=== PATIENT | male | born 1950 | race Caucasian/White ===

== ENCOUNTER → 2016-05-13 | Outpatient (CLI) | payer MEDICARE, BC | LOC: MW.CHNEURO 08:00 | PROVIDERS: ATTEND Psychiatry & Neurology Neuromuscular Medicine | DX: G20 Parkinson's disease (principal); R42 Dizziness and giddiness; G47.52 REM sleep behavior disorder | CPT/HCPCS: 99214 ==

== ENCOUNTER 2019-10-23 04:35 | Emergency (ER) | payer MEDICARE, BC ==
--- NOTE | 2019-10-23 04:50 | EDM.PDOC ---
<Jimi uTrner - Last Filed: 10/23/19 06:45> ED HPI GENERAL MEDICAL PROBLEM - General Chief Complaint: General Stated Complaint: EMS ARRIVAL Time Seen by Provider: 10/23/19 04:41 Source of Information: Reports: Patient, EMS, Family History Limitations: Reports: Other (Parkinson's, dementia) - History of Present Illness INITIAL COMMENTS - FREE TEXT/NARRATIVE: 69-year-old male history of Parkinson presents with unwitnessed fall in the bathroom just prior to arrival. He does not fully recall the fall. He complained to EMS of pain to the left elbow and ribs. He is unsure whether he hit his head. found him laying on his back in the shower. He lives with his and he normally walks without any assistance. He denies hip pain. ROS: A 10-point review of systems, other than pertinent positives and negatives as stated per HPI, is otherwise negative Past medical history: No additional pertinent history Past Surgical history: No additional pertinent history Social history: No additional pertinent history Family history: No additional pertinent history PHYSICAL EXAM General: AOx2, GCS = 15, No distress HEENT: dry mucous membrane, NC/AT Neck: supple, no meningismus, no Kernig or Brudzinski, collar in place. Cardiac: S1S2 RRR Chest wall: no flail chest, no tenderness to palpation to the ribs. Respiratory: CTAB, no crackles or rales, no wheezing Abdomen: Soft, nontender, no rebound or guarding, nondistended, no pulsatile mass. Back: nontender to C/T/L-spine Musculoskeletal: NVI distally, left elbow chronic deformity, mildly tender with ROM. no tenderness with pelvis rock or bilateral hips. Neuro: resting tremor, rigidity, akinesia Bilateral Lower Back Pain Score (Numeric/FACES): 8 - Related Data Allergies Allergy/AdvReac Type Severity Reaction Status Date / Time No Known Allergies Allergy Verified 01/01/18 08:23 Home Meds: Home Meds Tamsulosin [Flomax] 0.4 mg PO DAILY 09/13/13 [History] Carbidopa/Levodopa [Sinemet Cr 25-100 mg] 2.5 tab PO QID 05/22/14 [History] [place] Oil 1 dose PO ASDIRECTED PRN 01/01/18 [History] Cholecalciferol (Vitamin D3) [Vitamin D3] 1,000 units PO DAILY 01/01/18 [History] L.acidoph,Paracasei, B.lactis [Probiotic] 1 tab PO DAILY 01/01/18 [History] Mirtazapine 5 mg PO BEDTIME 01/01/18 [History] Multivitamin [Multivitamins] 1 tab PO DAILY 01/01/18 [History] Elizabeth-3S/DHA/Epa/Fish Oil [Elizabeth-3 Fish Oil 1,000 mg Sfgl] 1,000 mg PO DAILY 01/01/18 [History] Saw [place] 160 mg PO DAILY 01/01/18 [History] Turmeric Root Extract [Turmeric] 500 mg PO DAILY 01/01/18 [History] Vitamin B Complex 1 tab PO DAILY 01/01/18 [History] Past Medical History HEENT History: Reports: None Gastrointestinal History: Reports: Chronic Constipation, Other (See Below) Other Gastrointestinal History: recently has increased heartburn but does not take anything for this Genitourinary History: Reports: BPH, Prostate Disorder Musculoskeletal History: Reports: Fracture Other Musculoskeletal History: fx elbow in highschool Neurological History: Reports: Parkinson's Psychiatric History: Reports: Anxiety, Depression Dermatologic History: Reports: Eczema - Past Surgical History Head Surgeries/Procedures: Reports: None HEENT Surgical History: Reports: Myringotomy w Tube(s), Naso-Sinus Surgery, Tonsillectomy GI Surgical History: Reports: Colonoscopy Male Surgical History: Reports: Vasectomy Social & Family History - Caffeine Use Caffeine Use: Reports: None ED ROS GENERAL - Review of Systems Review Of Systems: Comprehensive ROS is negative, except as noted in HPI. ED EXAM, GENERAL - Physical Exam Exam: See Below (see dictation) Departure - Departure Disposition: Home, Self-Care 01 Condition: Good Clinical Impression: Fall - Discharge Information *PRESCRIPTION DRUG MONITORING PROGRAM REVIEWED*: Not Applicable *COPY OF PRESCRIPTION DRUG MONITORING REPORT IN PATIENT [place]LY[place]: Not Applicable Instructions: Fall Prevention in the Home, Adult, [id number], Parkinson's Disease, [id number] Referrals: Song Tinoco MD [Primary Care Provider] - 3 Days Forms: ED Department Discharge Additional Instructions: The need for follow-up, as well as the timing and circumstances, are variable depending upon the specifics of your emergency department visit. If you don't have a primary care physician on staff, we will provide you with a referral. We always advise you to contact your personal physician following an emergency department visit to inform them of the circumstance of the visit and for follow-up with them and/or the need for any referrals to a consulting specialist. The emergency department will also refer you to a specialist when appropriate. This referral assures that you have the opportunity for follow-up care with a specialist. All of these measure are taken in an effort to provide you with optimal care, which includes your follow-up. Under all circumstances we always encourage you to contact your private physician who remains a resource for coordinating your care. When calling for follow-up care, please make the office aware that this follow-up is from your recent emergency room visit. If for any reason you are refused follow-up, please contact the [facility] Emergency Department at and asked to speak to the emergency department charge nurse. If you do not have a primary care doctor, please follow up with the clinics below within 3-5 days. [facility] - Primary [facility] [address] [place] [address] [place] [address] <Hector Rodríguez - Last Filed: 10/23/19 09:08> Course - Vital Signs Last Recorded V/S: Last Vital Signs Temp 97.1 F 10/23/19 04:41 Pulse 74 10/23/19 07:30 Resp 19 10/23/19 07:30 BP 114/79 10/23/19 07:30 Pulse Ox 99 10/23/19 07:30 - Orders/Labs/Meds Meds: Medications Discontinued Medications Generic Name Dose Route Start Last Admin Trade Name Jam PRN Reason Stop Dose Admin Acetaminophen 650 mg 10/23/19 06:43 10/23/19 06:55 Tylenol PO 10/23/19 06:44 650 mg NOW ONE Administration - Re-Assessments/Exams Free Text/Narrative Re-Assessment/Exam: 10/23/19 07:32 Accepted care turned over this morning and I promptly have seen the patient. Briefly this is a 69-year-old male with Parkinson's who had a mechanical type fall and is awaiting results of CT scans. He does not complain of any pain with supination or pronation of his hands. There was some concern that he may have had an elbow injury. I reviewed the plain films, CT images, and I find no evidence of fracture or injury. There is an IT delay and there is some trouble transmitting the images off-site to a radiologist for review. We will continue to monitor him in the emergency department. He appears stable and his vital signs are normal. Departure - Departure Time of Disposition: 09:07 Sepsis Event Note (ED) - Focused Exam Vital Signs: Vital Signs Temp Pulse Resp BP Pulse Ox 10/23/19 07:30 74 19 114/79 99 10/23/19 06:36 64 16 112/54 L 96 10/23/19 04:41 97.1 F 84 20 118/78 97
--- NOTE | 2019-10-23 05:58 | CR ---
INDICATION: Fall, elbow pain TECHNIQUE: Elbow radiograph 2 views left COMPARISON: None FINDINGS: Bone: No acute fractures or aggressive bone lesions are identified. The radial head has a dysmorphic shape which may be due to prior injury. A large corticated ossicle seen adjacent to the lateral epicondyle measuring 2.2 x 0.8 cm which may represent a nonunited remote fracture or a nonunited secondary ossification center. Joint: The elbow joint is unremarkable. No significant displacement of the anterior or posterior fat pads noted to suggest an effusion. Soft tissue: Unremarkable. No radiopaque foreign bodies are seen. IMPRESSION: 1. No acute osseous injuries or abnormalities are noted. Dictated by Blaze Sanchez MD @ 10/23/2019 5:53:58 AM Dictated by: Blaze Sanchez MD @ 10/23/2019 05:54:04 (Electronically Signed)
[2019-10-23] MEDS ORDERED: Acetaminophen 325 MG Tab PO ONE (06:43)
--- NOTE | 2019-10-23 08:52 | CT ---
Head CT Technique: Multiple axial sections through the brain are obtained. Intravenous contrast was not utilized. Comparison: No prior intracranial imaging is available. Findings: Artifact is noted within the posterior fossa limiting details. Ventricles along with basal cisterns and sulci over the convexities are within normal limits for the patient's age. No abnormal parenchymal densities are seen. No evidence of intracranial hemorrhage. No midline shift or mass effect is seen. Bone window settings were reviewed. Visualized paranasal sinuses showed nothing acute. No acute calvarial finding is seen. Impression: 1. Artifact obscuring details within the posterior fossa. 2. Within this limitation, nothing acute is otherwise appreciated on noncontrast head CT exam. Diagnostic code #2 Study was dictated in MDT
--- NOTE | 2019-10-23 09:02 | CT ---
CT chest Technique: Multiple axial sections through the chest were obtained. Intravenous contrast was not utilized. Comparison: No prior chest imaging is available. Findings: Aorta and mediastinum show no adenopathy. No axillary adenopathy is seen. No mediastinal hematoma is identified. Lungs are clear with no acute parenchymal change. No pleural effusion or pneumothorax is seen. No acute osseous is seen. Impression: 1. Nothing acute is identified on noncontrast CT study of the chest. Diagnostic code #1 Study was dictated in MDT
--- NOTE | 2019-10-23 09:05 | CT ---
CT cervical spine Technique: Multiple axial sections through the cervical spine were obtained. Reconstructed coronal and sagittal images were obtained. Comparison: No prior cervical spine imaging. Findings: Degenerative change is noted between the dens and and C2. Mild disc space narrowing is noted throughout the cervical spine which is most prominent at C6-C7. Posterior osteophytes are noted at C6-C7. Anterior osteophytes are noted most prominent at C6-C7. No abnormal subluxation is seen. Minimal degenerative change is scattered within the cervical spine. Vertebral bodies and posterior arches are intact. No fracture is appreciated. Impression: 1. Degenerative change as noted above. 2. Nothing acute is appreciated on CT study of the cervical spine. Diagnostic code #1 Study was dictated in MDT
[2019-10-23 09:29] VITALS: BP 119/79; PULSE 70
== END 2019-10-23 09:23 | disposition home or self-care (01) ==
LOC: MW.ED 04:35
DX: M25.522 Pain in left elbow (principal); G20 Parkinson's disease; R07.81 Pleurodynia; F32.9 Major depressive disorder, single episode, unspecified; Z79.899 Other long term (current) drug therapy; W18.30XA Fall on same level, unspecified, initial encounter; Y92.002 Bathroom of unspecified non-institutional (private) residence as the place of occurrence of the external cause
CPT/HCPCS: 70450; 71250; 72125; 73070; 99284; A9270; 99282

== ENCOUNTER 2020-11-16 10:53 | Inpatient (IN) | payer MEDICARE, BC ==
[2020-11-16] MEDS ORDERED: Sodium Chloride 0.9% 2.5 ML Syringe FLUSH PRN (10:57)
[2020-11-16] MEDS ORDERED: Sodium Chloride 0.9% 10 ML Syringe FLUSH PRN (10:57)
[2020-11-16] MEDS ORDERED: Ondansetron 4 MG/2 ML SDV IVPUSH ONE (10:58)
[2020-11-16] MEDS ORDERED: Sodium Chloride 0.9% 1,000 ML IV ONE (10:58)
[2020-11-16] MEDS ORDERED: Ketorolac 30 MG/ML SDV IVPUSH ONE (10:58)
--- NOTE | 2020-11-16 11:04 | EDM.PDOC ---
ED HPI GENERAL MEDICAL PROBLEM - General Stated Complaint: COVID POS Time Seen by Provider: 11/16/20 10:55 Source of Information: Reports: Patient History Limitations: Reports: No Limitations - History of Present Illness INITIAL COMMENTS - FREE TEXT/NARRATIVE: HISTORY AND PHYSICAL: History of present illness: The patient is a 70-year-old male with a significant history of Parkinson presents to the emergency room with complaints of diarrhea and weakness that started 2 days ago. The patient has some confusion and the home caregiver is at the bedside. She states the patient was exposed to Covid on either Thursday or Thursday. The patient is unvaccinated. She states she did notice the patient was coughing up some phlegm earlier today. The caregiver was called by the patient's for assistance in cleaning the patient up after having liquid stools while in the bathroom. The caregiver states that the patient had continuous stools for over 30 minutes and was very weak requiring increased as sistance with mobility. Normally the patient has good mobility. The patient has been unable to take his Parkinson's medication for 2 days. The patient complaints of nausea but no vomiting. In the emergency department the patient is hemodynamically stable with a blood pressure of 129/87 and a heart rate of 74. The patient's SPO2 is 97 to 100% on room air. The patient's temperature is 97.8. Review of systems: As per history of present illness and below otherwise all systems reviewed and negative. Past medical history: As per history of present illness and as reviewed below otherwise no ncontributory. Surgical history: As per history of present illness and as reviewed below otherwise noncontributory. Social history: See social history for further information Family history: As per history of present illness and as reviewed below otherwise noncontributory. Physical exam: General: Developed and very thin. Alert and answers questions with 1-2 words. Nursing notes were reviewed. HEENT: Atraumatic, normocephalic, pupils equal and reactive bilaterally, negative for conjunctival pallor or scleral icterus, mucous membranes moist, TMs normal bilaterally, throat clear, neck supple, nontender, trachea midline. No drooling or trismus noted. No meningeal signs. No hot potato voice noted. Lungs: Clear to auscultation bilaterally. No wheezes, rales, or rhonchi. Chest nontender. Normal work of breathing, no accessory muscles used. Heart: S1S2, regular rate and rhythm without overt murmur, gallops, or rubs. No JVD. No peripheral edema Abdomen: Soft, nondistended, nontender. Normoactive bowel sounds. Negative for masses or costovertebral tenderness. Skin: Intact, warm, dry. No lesions or rashes noted. Hematologic: No petechiae or purpra. Mucosa appropriate color and normal nail bed color and refill. Extremities: Atraumatic. Extremities very thin but no atrophy noted. Tremors noted in upper extremities. Moves legs when touching. Notes: *This patient was seen and evaluated during the 2019 SARS-CoV-2 novel coronavirus pandemic period. Community viral transmission is ongoing at time of this encounter and the emergency department is operating under pandemic response procedures. As stated above the patient is a 70-year-old male who presents to the emergency room with complaints of diarrhea for 2 days, nausea, and extreme weakness. The patient has Parkinson's and requires a home caregiver who is at the bedside. The caregiver states the refused to come to the emergency as she did not want to become a Covid statistic. The patient and his were exposed to Covid after attending a reunion this weekend. The patient does answer questions with 1-2 words. He was able to say that he was nauseated and unable to take his meds but no vomiting. He has pain in his shoulders. I have ordered a CBC, CMP, magnesium, troponin, EKG, chest x-ray and IV fluids, Toradol, and Zofran. The patient CBC is remarkable for an MCH of 33.7 and a platelet count of 102. The patient's CMP is remarkable for a sodium of 135, chloride 97, BUN at 27, glucose 109, AST 57. The patient's troponin is within normal limits. The patient is COVID-19 positive. Chest x-ray IMPRESSION: Negative chest. No sign of pneumonia. I spoke with the patient's Violet Nieto regarding the patient's treatment and positive COVID-19. The patient's stated that up until 4 days ago the patient normally could say what he wanted with his own healthcare status, however, the last 4 days the patient has been increasingly weak unable to keep any fluids or food in and for the last 2 days no medication in. The requested the patient be DNR and DNI. If the patient becomes hypoxic to be made comfortable. I did explain to the the probable outcome of hypoxia leading to due to Covid. The verbalizes understanding. She states the last year he has become increasingly worse with her Parkinson and it has been a day today struggle. We have been waiting on a urinalysis and has attempted to catheterize the patient x2. The last attempt causing blood from trauma. The and caregiver both state the patient normally can urinate on his own. They have asked us to wait on the catheterization. We did a bladder scan and the patient did have approximately 300 mL of urine in his bladder. We will wait for the patient to urinate on his own. Spoke with Dr. Lopez regarding admission. Dr. Brewer is agreeable to admission. The patient's son is concerned regarding the patients medication. He was informed that we would keep the medications as close to home as possible. Diagnostics:CBC, CMP, magnesium, troponin, EKG, chest x-ray Therapeutics: IV fluids, Toradol 30 mg IV, Zofran 1 mg IV Impression: COVID-19, Weakness, Diarrhea Definitive disposition and diagnosis as appropriate pending reevaluation and review of above. - Related Data Allergies Allergy/AdvReac Type Severity Reaction Status Date / Time No Known Allergies Allergy Verified 11/16/20 16:16 Home Meds: Home Meds Tamsulosin [Flomax] 0.4 mg PO DAILY 09/13/13 [History] Carbidopa/Levodopa [Sinemet Cr 25-100 mg] 2.5 tab PO QID 05/22/14 [History] [place] Oil 1 dose PO ASDIRECTED PRN 01/01/18 [History] Cholecalciferol (Vitamin D3) [Vitamin D3] 1,000 units PO DAILY 01/01/18 [History] L.acidoph,Paracasei, B.lactis [Probiotic] 1 tab PO DAILY 01/01/18 [History] Mirtazapine 5 mg PO BEDTIME 01/01/18 [History] Multivitamin [Multivitamins] 1 tab PO DAILY 01/01/18 [History] [place]-3S/DHA/Epa/Fish Oil [[place]strip-3 Fish Oil 1,000 mg Sfgl] 1,000 mg PO DAILY 01/01/18 [History] [place] 160 mg PO DAILY 01/01/18 [History] Turmeric Root Extract [Turmeric] 500 mg PO DAILY 01/01/18 [History] Vitamin B Complex 4 tab PO BID 01/01/18 [History] Carbidopa/Levodopa/Entacapone [Carbidopa-Levodopa 100 mg-Enta] 25 - 100 mg PO TID 11/16/20 [History] Niacin 400 mg PO QID 11/16/20 [History] amantadine HCL [Amantadine] 100 mg PO BID 11/16/20 [History] Past Medical History HEENT History: Reports: None Cardiovascular History: Reports: Other (See Below) Other Cardiovascular History: low blood pressures per Gastrointestinal History: Reports: Chronic Constipation, Other (See Below) Other Gastrointestinal History: recently has increased heartburn but does not take anything for this Genitourinary History: Reports: BPH, Prostate Disorder Musculoskeletal History: Reports: Fracture Other Musculoskeletal History: fx elbow in highschool Neurological History: Reports: Parkinson's Psychiatric History: Reports: Anxiety, Depression Dermatologic History: Reports: Eczema - Infectious Disease History Infectious Disease History: Reports: Chicken Pox - Past Surgical History Head Surgeries/Procedures: Reports: None HEENT Surgical History: Reports: Myringotomy w Tube(s), Naso-Sinus Surgery, Tonsillectomy GI Surgical History: Reports: Colonoscopy Male Surgical History: Reports: Vasectomy Social & Family History - Caffeine Use Caffeine Use: Reports: None ED ROS GENERAL - Review of Systems Review Of Systems: Comprehensive ROS is negative, except as noted in HPI. ED EXAM, GENERAL - Physical Exam Exam: See Below (See dictation) Course - Vital Signs Last Recorded V/S: Last Vital Signs Temp 98.2 F 11/16/20 13:30 Pulse 78 11/16/20 14:10 Resp 18 11/16/20 14:10 BP 118/71 11/16/20 14:10 Pulse Ox 96 11/16/20 14:10 - Orders/Labs/Meds Orders: Active Orders 24 hr Category Date Time Status Sodium Chloride 0.9% [Saline Flush] Med 11/16/20 10:57 Active 10 ml FLUSH ASDIRECTED PRN Sodium Chloride 0.9% [Saline Flush] Med 11/16/20 10:57 Active 2.5 ml FLUSH ASDIRECTED PRN Saline Lock Insert [OM.PC] Stat Oth 11/16/20 10:57 Ordered Medication Orders Acetaminophen (Acetaminophen 325 Mg Tab) 650 mg PO Q4H PRN PRN Reason: Pain (Mild 1-3)/fever Albuterol (Albuterol 0.083% 2.5 Mg/3 Ml Neb Soln) 2.5 mg NEB Q2H PRN PRN Reason: Shortness Of Breath/wheezing Amantadine HCl (Amantadine 100 Mg Cap) 100 mg PO BID JANAE Pantoprazole Sodium 40 mg/ (Sodium Chloride) 10 mls @ 300 mls/hr IV Q24H [facility] Last Admin: 11/16/20 17:52 Dose: 300 mls/hr Documented by: KEATON Lactated Ringer's (Ringers, Lactated) 1,000 mls @ 100 mls/hr IV ASDIRECTED JANAE Non-Formulary Medication (Niacin [Niacin]) 400 mg PO QID [facility] Non-Formulary Medication (Carbidopa/Levodopa/Entacapone [Carbidopa-Levodopa 100 Mg-Enta]) 25 - 100 mg PO TID JANAE Ondansetron HCl (Ondansetron 4 Mg/2 Ml Sdv) 4 mg IVPUSH Q4H PRN PRN Reason: Nausea/Vomiting Thiamine 500mg (Vitamin B1 Capsule) 4 each PO 0700,1100 [facility] Last Admin: 11/16/20 18:48 Dose: 4 each Documented by: KEATON Carbidopa/Levodopa (25-100mg Tab) 0.5 each PO 0700,1100,1600 [facility] Last Admin: 11/16/20 18:46 Dose: 0.5 each Documented by: KEATON L-Dopa Fcc Grade 250 (G) 0.4 each PO 1100,1600 [facility] Last Admin: 11/16/20 18:52 Dose: 0.4 each Documented by: KEATON Amantadine 100mg Tab 1 each PO 0700,1600 [facility] Last Admin: 11/16/20 18:46 Dose: 1 each Documented by: KEATON Niacin 100 Mg (Vitamin B3) 4 each PO 0700,1100,1600,2000 [facility] Last Admin: 11/16/20 18:47 Dose: 4 each Documented by: KEATON Sodium Chloride (Sodium Chloride 0.9% 10 Ml Syringe) 10 ml FLUSH ASDIRECTED PRN PRN Reason: Keep Vein Open Last Admin: 11/16/20 11:10 Dose: 10 ml Documented by: FABRICIO Sodium Chloride (Sodium Chloride 0.9% 2.5 Ml Syringe) 2.5 ml FLUSH ASDIRECTED PRN PRN Reason: Keep Vein Open Last Admin: 11/16/20 11:10 Dose: 2.5 ml Documented by: FABRICIO Labs: Laboratory Tests 11/16/20 11/16/20 11/16/20 Range/Units 11:00 11:00 11:00 WBC 4.30 (4.0-11.0) K/uL RBC 4.60 (4.50-5.90) M/uL Hgb 15.5 (13.0-17.0) g/dL Hct 44.0 (38.0-50.0) % MCV 95.7 (80.0-98.0) fL MCH 33.7 H (27.0-32.0) pg MCHC 35.2 (31.0-37.0) g/dL RDW Std Deviation 42.1 (28.0-62.0) fl RDW Coeff of Angélica 12 (11.0-15.0) % Plt Count 102 L (150-400) K/uL MPV 10.90 (7.40-12.00) fL Neut % (Auto) 71.2 (48.0-80.0) % Lymph % (Auto) 20.2 (16.0-40.0) % [place] % (Auto) 8.6 (0.0-15.0) % Eos % (Auto) 0.0 (0.0-7.0) % Baso % (Auto) 0.0 (0.0-1.5) % Neut # (Auto) 3.1 (1.4-5.7) K/uL Lymph # (Auto) 0.9 (0.6-2.4) K/uL [place] # (Auto) 0.4 (0.0-0.8) K/uL Eos # (Auto) 0.0 (0.0-0.7) K/uL Baso # (Auto) 0.0 (0.0-0.1) K/uL Sodium 135 L (136-148) mmol/L Potassium 3.9 (3.5-5.1) mmol/L Chloride 97 L (98-107) mmol/L Carbon Dioxide 29.2 (21.0-32.0) mmol/L BUN 27 H (7.0-18.0) mg/dL Creatinine 1.2 (0.8-1.3) mg/dL Est Cr Clr Drug Dosing 52.92 mL/min Estimated GFR (MDRD) > 60.0 ml/min Glucose 109 H (74-106) mg/dL Calcium 9.1 (8.5-10.1) mg/dL Magnesium 2.4 (1.8-2.4) mg/dL Total Bilirubin 0.8 (0.2-1.0) mg/dL AST 57 H (15-37) IU/L ALT 42 (14-63) IU/L Alkaline Phosphatase 97 (46-116) U/L Troponin I < 0.050 (0.000-0.056) ng/mL Total Protein 7.0 (6.4-8.2) g/dL Albumin 3.8 (3.4-5.0) g/dL Globulin 3.2 (2.6-4.0) g/dL Albumin/Globulin Ratio 1.2 (0.9-1.6) Vitamin D 25-Hydroxy (30.0-100.0) ng/mL SARS-CoV-2 RNA ([place]) (NEGATIVE) 11/16/20 11/16/20 Range/Units 11:00 11:22 WBC (4.0-11.0) K/uL RBC (4.50-5.90) M/uL Hgb (13.0-17.0) g/dL Hct (38.0-50.0) % MCV (80.0-98.0) fL MCH (27.0-32.0) pg MCHC (31.0-37.0) g/dL RDW Std Deviation (28.0-62.0) fl RDW Coeff of Angélica (11.0-15.0) % Plt Count (150-400) K/uL MPV (7.40-12.00) fL Neut % (Auto) (48.0-80.0) % Lymph % (Auto) (16.0-40.0) % [place] % (Auto) (0.0-15.0) % Eos % (Auto) (0.0-7.0) % Baso % (Auto) (0.0-1.5) % Neut # (Auto) (1.4-5.7) K/uL Lymph # (Auto) (0.6-2.4) K/uL [place] # (Auto) (0.0-0.8) K/uL Eos # (Auto) (0.0-0.7) K/uL Baso # (Auto) (0.0-0.1) K/uL Sodium (136-148) mmol/L Potassium (3.5-5.1) mmol/L Chloride (98-107) mmol/L Carbon Dioxide (21.0-32.0) mmol/L BUN (7.0-18.0) mg/dL Creatinine (0.8-1.3) mg/dL Est Cr Clr Drug Dosing mL/min Estimated GFR (MDRD) ml/min Glucose (74-106) mg/dL Calcium (8.5-10.1) mg/dL Magnesium (1.8-2.4) mg/dL Total Bilirubin (0.2-1.0) mg/dL AST (15-37) IU/L ALT (14-63) IU/L Alkaline Phosphatase (46-116) U/L Troponin I (0.000-0.056) ng/mL Total Protein (6.4-8.2) g/dL Albumin (3.4-5.0) g/dL Globulin (2.6-4.0) g/dL Albumin/Globulin Ratio (0.9-1.6) Vitamin D 25-Hydroxy 43.4 (30.0-100.0) ng/mL SARS-CoV-2 RNA ([place]) POSITIVE H (NEGATIVE) Meds: Medications Generic Name Dose Route Start Last Admin Trade Name Freq PRN Reason Stop Dose Admin Acetaminophen 650 mg 11/16/20 14:53 Acetaminophen 325 Mg Tab PO Q4H PRN Pain (Mild 1-3)/fever Albuterol 2.5 mg 11/16/20 14:53 Albuterol 0.083% 2.5 Mg/3 Ml Neb Soln NEB Q2H PRN Shortness Of Breath/wheezing Amantadine HCl 100 mg 11/16/20 18:45 Amantadine 100 Mg Cap PO BID JANAE Pantoprazole Sodium 40 mg/ 10 mls @ 300 mls/hr 11/16/20 15:00 11/16/20 17:52 Sodium Chloride IV 300 mls/hr Q24H JANAE Administration Lactated Ringer's 1,000 mls @ 100 mls/hr 11/16/20 18:00 Ringers, Lactated IV ASDIRECTED JANAE Non-Formulary Medication 400 mg 11/16/20 18:45 Niacin [Niacin] PO QID JNAAE Non-Formulary Medication 25 - 100 mg 11/16/20 18:45 Carbidopa/Levodopa/Entacapone [Carbidopa-Levodopa 100 Mg-Enta] PO TID JANAE Ondansetron HCl 4 mg 11/16/20 14:58 Ondansetron 4 Mg/2 Ml Sdv IVPUSH Q4H PRN Nausea/Vomiting Thiamine 500mg 4 each 11/16/20 18:00 11/16/20 18:48 Vitamin B1 Capsule PO 4 each 0700,1100 JANAE Administration Carbidopa/Levodopa 0.5 each 11/16/20 18:00 11/16/20 18:46 25-100mg Tab PO 0.5 each 0700,1100,1600 JNAAE Administration L-Dopa Fcc Grade 250 0.4 each 11/16/20 18:00 11/16/20 18:52 G PO 0.4 each 1100,1600 JANAE Administration Amantadine 100mg Tab 1 each 11/16/20 18:00 11/16/20 18:46 PO 1 each 0700,1600 JANAE Administration Niacin 100 Mg 4 each 11/16/20 18:00 11/16/20 18:47 Vitamin B3 PO 4 each 0700,1100,1600,2000 JANAE Administration Sodium Chloride 10 ml 11/16/20 10:57 11/16/20 11:10 Sodium Chloride 0.9% 10 Ml Syringe FLUSH 10 ml ASDIRECTED PRN Administration Keep Vein Open Sodium Chloride 2.5 ml 11/16/20 10:57 11/16/20 11:10 Sodium Chloride 0.9% 2.5 Ml Syringe FLUSH 2.5 ml ASDIRECTED PRN Administration Keep Vein Open Discontinued Medications Generic Name Dose Route Start Last Admin Trade Name Freq PRN Reason Stop Dose Admin Sodium Chloride 1,000 mls @ 999 mls/hr 11/16/20 10:58 11/16/20 11:10 Normal Saline IV 11/16/20 11:58 999 mls/hr .BOLUS ONE Administration Lactated Ringer's 1,000 mls @ 100 mls/hr 11/16/20 15:00 Ringers, Lactated IV ASDIRECTED JANAE Ketorolac Tromethamine 30 mg 11/16/20 10:58 11/16/20 11:10 Ketorolac 30 Mg/Ml Sdv IVPUSH 11/16/20 10:59 30 mg ONETIME ONE Administration Ondansetron HCl 4 mg 11/16/20 10:58 11/16/20 11:10 Ondansetron 4 Mg/2 Ml Sdv IVPUSH 11/16/20 10:59 4 mg ONETIME ONE Administration Departure - Departure Time of Disposition: 14:27 Disposition: Admitted As Inpatient 68 Condition: Fair Clinical Impression: Diarrhea, COVID-19, Weakness - Discharge Information Sepsis Event Note (ED) - Focused Exam Vital Signs: Vital Signs Temp Pulse Resp BP Pulse Ox 11/16/20 14:10 78 18 118/71 96 11/16/20 13:30 98.2 F 84 18 138/72 98 11/16/20 12:30 82 18 122/73 97 11/16/20 11:29 98.2 F 84 18 121/73 98 11/16/20 10:56 97.2 F 78 18 129/87 96 - My Orders Last 24 Hours: My Active Orders 11/16/20 10:57 Sodium Chloride 0.9% [Saline Flush] 10 ml FLUSH ASDIRECTED PRN Sodium Chloride 0.9% [Saline Flush] 2.5 ml FLUSH ASDIRECTED PRN Saline Lock Insert [OM.PC] Stat - Assessment/Plan Last 24 Hours: My Active Orders 11/16/20 10:57 Sodium Chloride 0.9% [Saline Flush] 10 ml FLUSH ASDIRECTED PRN Sodium Chloride 0.9% [Saline Flush] 2.5 ml FLUSH ASDIRECTED PRN Saline Lock Insert [OM.PC] Stat
--- NOTE | 2020-11-16 11:28 | PCM.EKG ---
#1 Interpretation EKG Interpretation Comments: KG done 11/16/2020 at 11:19 AM shows a sinus rhythm with a heart rate of 64 LA 120 QT duration 419 axis 74 late transition R wave in the precordium nonspecific ST changes. Impression no obvious injury
[2020-11-16 11:33] LABS: BLOOD UREA NITROGEN,BUN 27 mg/dL (7.0-18.0); CARBON DIOXIDE,CO2 29.2 mmol/L (21.0-32.0); CHLORIDE,CL 97 mmol/L (98-107); GLUCOSE RANDOM 109 mg/dL (74-106); POTASSIUM,K 3.9 mmol/L (3.5-5.1); SODIUM,NA 135 mmol/L (136-148)
--- NOTE | 2020-11-16 12:29 | CR ---
INDICATION: Cough. TECHNIQUE: Chest 1 views. COMPARISON: CT chest October 23, 2019. FINDINGS: Cardiovascular and mediastinum: Heart size and vasculature are normal in caliber and appearance. Lungs and pleural spaces: Lungs are clear. No sign of infiltrate or mass. No sign of pleural effusion. No pneumothorax. Bones and soft tissues: No significant findings. IMPRESSION: Negative chest. No sign of pneumonia. Dictated by Jeffrey Li MD @ 11/16/2020 12:27:03 PM (Electronically Signed)
--- NOTE | 2020-11-16 13:44 | PCM.HP.2 ---
H&P History of Present Illness - General Date of Service: 11/16/20 - History of Present Illness Initial Comments - Free Text/Narative: 70-year-old male with a current history history of Parkinson, treated with amantadine and carbidopa/levodopa presented to emergency department with complaints of 2-day history of diarrhea, generalized weakness, poor oral intake, mild cough. History and review of system obtained from patient's caregiver who is currently at bedside. Caregiver states that she has been working with the patient for some time and notes his baseline. Patient does respond to verbal commands intermittently. Patient's caregiver states that the patient's became sick this past weekend and believes that the patient contracted Covid from her. Patient is unva ccinated. Caregiver states patient has been unable to take his Parkinson's medication for the past 2 days. ER coursepatient received 1 L normal saline bolus, IV 4mg Zofran x1, IV 30 mg Toradol x1. Chest x-ray impression, no signs of pleural effusion, no pneumothorax, no sign of pneumonia. White blood cell count 4.3, hemoglobin 15.5, platelet 102, sodium 135, potassium 3.9, BUN 27, creatinine 1.2, AST 57, ALT 42, troponin x1 negative. Patient admitted for ambulatory dysfunction secondary to generalized weakness and history of parkinsonism. Per documentation ER provider has spoken with patient's and has documented the following. "The patient's stated that up until 4 days ago the patient normally could say what he wanted with his own healthcare status, however, the last 4 days the patient has been increasingly weak unable to keep any fluids or food in and for the last 2 days no medication in. The requested the patient be DNR and DNI. If the patient becomes hypoxic to be made comfortable. I did explain to the the probable outcome of hypoxia leading to due to Covid. The verbalizes understanding" I have spoken with patient's , Violet, as well and she states that she currently does not want to provide treatment to patient for COVID-19 infection including dexamethasone, remdesivir. She states that she "will think about it" and if she changes her mind she will let us know. I have also informed Violet that if the patient deteriorates from current COVID-19 infection, patient to be made comfort care. Violet agrees. - Related Data Allergies/Adverse Reactions: Allergies Allergy/AdvReac Type Severity Reaction Status Date / Time No Known Allergies Allergy Verified 11/16/20 16:16 Home Medications: Home Meds Tamsulosin [Flomax] 0.4 mg PO DAILY 09/13/13 [History] Carbidopa/Levodopa [Sinemet Cr 25-100 mg] 2.5 tab PO QID 05/22/14 [History] [place] Oil 1 dose PO ASDIRECTED PRN 01/01/18 [History] Cholecalciferol (Vitamin D3) [Vitamin D3] 1,000 units PO DAILY 01/01/18 [History] L.acidoph,Paracasei, B.lactis [Probiotic] 1 tab PO DAILY 01/01/18 [History] Mirtazapine 5 mg PO BEDTIME 01/01/18 [History] Multivitamin [Multivitamins] 1 tab PO DAILY 01/01/18 [History] [place]-3S/DHA/Epa/Fish Oil [[place]-3 Fish Oil 1,000 mg Sfgl] 1,000 mg PO DAILY 01/01/18 [History] Saw [place] 160 mg PO DAILY 01/01/18 [History] Turmeric Root Extract [Turmeric] 500 mg PO DAILY 01/01/18 [History] Vitamin B Complex 4 tab PO BID 01/01/18 [History] Carbidopa/Levodopa/Entacapone [Carbidopa-Levodopa 100 mg-Enta] 25 - 100 mg PO TID 11/16/20 [History] Niacin 400 mg PO QID 11/16/20 [History] amantadine HCL [Amantadine] 100 mg PO BID 11/16/20 [History] Past Medical History - Past Health History Medical/Surgical History: Denies Medical/Surgical History HEENT History: Reports: None Cardiovascular History: Reports: Other (See Below) Other Cardiovascular History: low blood pressures per Respiratory History: Reports: None Gastrointestinal History: Reports: Chronic Constipation, Other (See Below) Other Gastrointestinal History: recently has increased heartburn but does not take anything for this Genitourinary History: Reports: BPH, Prostate Disorder Musculoskeletal History: Reports: Fracture Other Musculoskeletal History: fx elbow in highschool Neurological History: Reports: Parkinson's Psychiatric History: Reports: Anxiety, Depression Endocrine/Metabolic History: Reports: None Hematologic History: Reports: None Immunologic History: Reports: None Oncologic (Cancer) History: Reports: None Dermatologic History: Reports: Eczema - Infectious Disease History Infectious Disease History: Reports: Chicken Pox - Past Surgical History Head Surgeries/Procedures: Reports: None HEENT Surgical History: Reports: Myringotomy w Tube(s), Naso-Sinus Surgery, Tonsillectomy GI Surgical History: Reports: Colonoscopy Male Surgical History: Reports: Vasectomy Social & Family History - Family History Family Medical History: No Pertinent Family History - Tobacco Use Tobacco Use Status *Q: Never Tobacco User Second Hand Smoke Exposure: No - Caffeine Use Caffeine Use: Reports: None - Recreational Drug Use Recreational Drug Use: No H&P Review of Systems - Review of Systems: Review Of Systems: See Below Free Text/Narrative: Review of system obtained from patient's via phone, patient's caregiver who is at bedside. Patient is able to answer some verbal commands intermittently. General: Reports: Fatigue, Decreased Appetite, Weight Loss. Denies: Fever, Chills Pulmonary: Reports: Cough. Denies: Shortness of Breath, Wheezing Cardiovascular: Denies: Chest Pain, Orthopnea, Edema Gastrointestinal: Reports: Diarrhea, Decreased Appetite. Denies: Abdominal Pain, Black Stool Psychiatric: Reports: Confusion Neurological: Reports: Confusion. Denies: Dizziness, Headache Exam - Exam Exam: See Below - Vital Signs Vital Signs: Last Vital Signs Temp 98.2 F 11/16/20 11:29 Pulse 84 11/16/20 11:29 Resp 18 11/16/20 11:29 BP 121/73 11/16/20 11:29 Pulse Ox 98 11/16/20 11:29 Weight: 140 lb - Exam Quality Assessment: No: Supplemental Oxygen General: Alert HEENT: Hearing Intact Lungs: Clear to Auscultation, Normal Respiratory Effort Cardiovascular: Regular Rate, Regular Rhythm GI/Abdominal Exam: Soft, Non-Tender Extremities: Non-Tender, No Pedal Edema Skin: Warm, Dry Neuro Extensive - Mental Status: Alert, Disorientation to Time. No: Disorientation to Person, Disorientation to Place Psychiatric: Alert - Patient Data Lab Results Last 24 hrs: Laboratory Results - last 24 hr 11/16/20 11/16/20 11/16/20 Range/Units 11:00 11:00 11:00 WBC 4.30 (4.0-11.0) K/uL RBC 4.60 (4.50-5.90) M/uL Hgb 15.5 (13.0-17.0) g/dL Hct 44.0 (38.0-50.0) % MCV 95.7 (80.0-98.0) fL MCH 33.7 H (27.0-32.0) pg MCHC 35.2 (31.0-37.0) g/dL RDW Std Deviation 42.1 (28.0-62.0) fl RDW Coeff of Angélica 12 (11.0-15.0) % Plt Count 102 L (150-400) K/uL MPV 10.90 (7.40-12.00) fL Neut % (Auto) 71.2 (48.0-80.0) % Lymph % (Auto) 20.2 (16.0-40.0) % [place] % (Auto) 8.6 (0.0-15.0) % Eos % (Auto) 0.0 (0.0-7.0) % Baso % (Auto) 0.0 (0.0-1.5) % Neut # (Auto) 3.1 (1.4-5.7) K/uL Lymph # (Auto) 0.9 (0.6-2.4) K/uL [place] # (Auto) 0.4 (0.0-0.8) K/uL Eos # (Auto) 0.0 (0.0-0.7) K/uL Baso # (Auto) 0.0 (0.0-0.1) K/uL Sodium 135 L (136-148) mmol/L Potassium 3.9 (3.5-5.1) mmol/L Chloride 97 L (98-107) mmol/L Carbon Dioxide 29.2 (21.0-32.0) mmol/L BUN 27 H (7.0-18.0) mg/dL Creatinine 1.2 (0.8-1.3) mg/dL Est Cr Clr Drug Dosing 52.92 mL/min Estimated GFR (MDRD) > 60.0 ml/min Glucose 109 H (74-106) mg/dL Calcium 9.1 (8.5-10.1) mg/dL Magnesium 2.4 (1.8-2.4) mg/dL Total Bilirubin 0.8 (0.2-1.0) mg/dL AST 57 H (15-37) IU/L ALT 42 (14-63) IU/L Alkaline Phosphatase 97 (46-116) U/L Troponin I < 0.050 (0.000-0.056) ng/mL Total Protein 7.0 (6.4-8.2) g/dL Albumin 3.8 (3.4-5.0) g/dL Globulin 3.2 (2.6-4.0) g/dL Albumin/Globulin Ratio 1.2 (0.9-1.6) SARS-CoV-2 RNA (ETTA) (NEGATIVE) 11/16/20 Range/Units 11:22 WBC (4.0-11.0) K/uL RBC (4.50-5.90) M/uL Hgb (13.0-17.0) g/dL Hct (38.0-50.0) % MCV (80.0-98.0) fL MCH (27.0-32.0) pg MCHC (31.0-37.0) g/dL RDW Std Deviation (28.0-62.0) fl RDW Coeff of Angélica (11.0-15.0) % Plt Count (150-400) K/uL MPV (7.40-12.00) fL Neut % (Auto) (48.0-80.0) % Lymph % (Auto) (16.0-40.0) % [place] % (Auto) (0.0-15.0) % Eos % (Auto) (0.0-7.0) % Baso % (Auto) (0.0-1.5) % Neut # (Auto) (1.4-5.7) K/uL Lymph # (Auto) (0.6-2.4) K/uL [place] # (Auto) (0.0-0.8) K/uL Eos # (Auto) (0.0-0.7) K/uL Baso # (Auto) (0.0-0.1) K/uL Sodium (136-148) mmol/L Potassium (3.5-5.1) mmol/L Chloride (98-107) mmol/L Carbon Dioxide (21.0-32.0) mmol/L BUN (7.0-18.0) mg/dL Creatinine (0.8-1.3) mg/dL Est Cr Clr Drug Dosing mL/min Estimated GFR (MDRD) ml/min Glucose (74-106) mg/dL Calcium (8.5-10.1) mg/dL Magnesium (1.8-2.4) mg/dL Total Bilirubin (0.2-1.0) mg/dL AST (15-37) IU/L ALT (14-63) IU/L Alkaline Phosphatase (46-116) U/L Troponin I (0.000-0.056) ng/mL Total Protein (6.4-8.2) g/dL Albumin (3.4-5.0) g/dL Globulin (2.6-4.0) g/dL Albumin/Globulin Ratio (0.9-1.6) SARS-CoV-2 RNA (ETTA) POSITIVE H (NEGATIVE) Result Diagrams: 11/16/20 11:00 11/16/20 11:00 Sepsis Event Note - Evaluation Sepsis Screening Result: No Definite Risk - Focused Exam Vital Signs: Vital Signs Temp Pulse Resp BP Pulse Ox 11/16/20 11:29 98.2 F 84 18 121/73 98 11/16/20 10:56 97.2 F 78 18 129/87 96 - Problem List (1) Parkinson disease SNOMED Code(s): 15286256 ICD Code: G20 - PARKINSON'S DISEASE Status: Acute Current Visit: Yes (2) Weakness SNOMED Code(s): 48339724 ICD Code: R53.1 - WEAKNESS Status: Acute Current Visit: Yes (3) Diarrhea SNOMED Code(s): 86166521 ICD Code: R19.7 - DIARRHEA, UNSPECIFIED Status: Acute Current Visit: Yes (4) COVID-19 SNOMED Code(s): 170899713 ICD Code: U07.1 - COVID-19 Status: Acute Current Visit: Yes Problem List Initiated/Reviewed/Updated: Yes Orders Last 24hrs: Active Orders 24 hr Category Date Time Status UA W/CAYLA RFLX IF INDICATED [URIN] Stat Lab 11/16/20 11:36 Ordered Sodium Chloride 0.9% [Saline Flush] Med 11/16/20 10:57 Active 10 ml FLUSH ASDIRECTED PRN Sodium Chloride 0.9% [Saline Flush] Med 11/16/20 10:57 Active 2.5 ml FLUSH ASDIRECTED PRN Saline Lock Insert [OM.PC] Stat Oth 11/16/20 10:57 Ordered Medication Orders Sodium Chloride (Sodium Chloride 0.9% 10 Ml Syringe) 10 ml FLUSH ASDIRECTED PRN PRN Reason: Keep Vein Open Last Admin: 11/16/20 11:10 Dose: 10 ml Documented by: FABRICIO Sodium Chloride (Sodium Chloride 0.9% 2.5 Ml Syringe) 2.5 ml FLUSH ASDIRECTED PRN PRN Reason: Keep Vein Open Last Admin: 11/16/20 11:10 Dose: 2.5 ml Documented by: FABRICIO Assessment/Plan Comment:: 70 Male admitted for ambulatory dysfunction secondary to generalized weakness and history of parkinsonism. LR 100 mL/h, 40 mg Protonix Q24hr, 4 mg Zofran IV Q4hr prn, DuoNeb as needed Physical therapy consult-(Patient's caregiver states patient's baseline is a mbulation with walker at home). SCDsplatelet count 102
[2020-11-16] MEDS ORDERED: Albuterol 0.083% 2.5 MG/3 ML Neb Soln NEB PRN (14:53)
[2020-11-16] MEDS ORDERED: Acetaminophen 325 MG Tab PO PRN (14:53)
[2020-11-16] MEDS ORDERED: Ondansetron 4 MG/2 ML SDV IVPUSH PRN (14:58)
[2020-11-16] MEDS ORDERED: Lactated Ringers 1,000 ML IV SCH ×2 (15:00→18:00)
[2020-11-16] MEDS ORDERED: Pantoprazole 40 MG in Sodium Chloride 0.9% 10 ML IV SCH (15:00)
[2020-11-16] MEDS ORDERED: LEVODOPA PO SCH (18:45)
[2020-11-16] MEDS ORDERED: NIACIN 100 MG PO SCH (18:45)
[2020-11-16] MEDS ORDERED: [UNRECOGNIZED DRUG - OTHER] PO SCH (18:45)
[2020-11-16] MEDS ORDERED: Amantadine 100 MG Cap PO SCH (18:45)
[2020-11-16] MEDS ORDERED: ENTACAPONE PO SCH (18:45)
[2020-11-16] MEDS ORDERED: CARBIDOPA PO SCH (18:45)
[2020-11-16] MEDS: AMANTADINE 100 MG PO SCH (18:46)
[2020-11-16] MEDS: CARBIDOPA PO SCH (18:46)
[2020-11-16] MEDS: LEVODOPA PO SCH (18:46)
[2020-11-16] MEDS: NIACIN 100 MG PO SCH ×2 (18:47→20:21)
[2020-11-16] MEDS: [UNRECOGNIZED DRUG - OTHER] PO SCH ×2 (18:47→20:21)
[2020-11-16] MEDS: [UNRECOGNIZED DRUG - OTHER] PO SCH (18:48)
[2020-11-16] MEDS: THIAMINE PO SCH (18:48)
[2020-11-16] MEDS: [UNRECOGNIZED DRUG - OTHER] PO SCH (18:52)
[2020-11-17] MEDS: AMANTADINE 100 MG PO SCH (06:25)
[2020-11-17] MEDS: CARBIDOPA PO SCH ×2 (06:26→10:44)
[2020-11-17] MEDS: LEVODOPA PO SCH ×2 (06:26→10:44)
[2020-11-17] MEDS: [UNRECOGNIZED DRUG - OTHER] PO SCH ×2 (06:27→10:46)
[2020-11-17] MEDS: [UNRECOGNIZED DRUG - OTHER] PO SCH ×2 (06:27→10:48)
[2020-11-17] MEDS: NIACIN 100 MG PO SCH ×2 (06:27→10:46)
[2020-11-17] MEDS: THIAMINE PO SCH ×2 (06:27→10:48)
[2020-11-17 07:01] LABS: BLOOD UREA NITROGEN,BUN 20 mg/dL (7.0-18.0); CARBON DIOXIDE,CO2 27.1 mmol/L (21.0-32.0); CHLORIDE,CL 101 mmol/L (98-107); GLUCOSE RANDOM 107 mg/dL (74-106); POTASSIUM,K 4.2 mmol/L (3.5-5.1); SODIUM,NA 135 mmol/L (136-148)
[2020-11-17 09:59] VITALS: BP 116/80; PULSE 81
[2020-11-17] MEDS: [UNRECOGNIZED DRUG - OTHER] PO SCH (10:44)
--- NOTE | 2020-11-17 11:48 | PCM.DCSUM1 ---
Discharge Summary - Hospital Course Free Text/Narrative:: 70-year-old male with a current history history of Parkinson, treated with amantadine and carbidopa/levodopa presented to emergency department with complaints of 2-day history of diarrhea, generalized weakness, poor oral intake, mild cough. History and review of system obtained from patient's caregiver who is currently at bedside. Caregiver states that she has been working with the patient for some time and notes his baseline. Patient does respond to verbal commands intermittently. Patient's caregiver states that the patient's became sick this past weekend and believes that the patient contracted Covid from her. Patient is unvaccinated. Caregiver states patient has been unable to take his Parkinson's medication for the past 2 days. ER coursepatient received 1 L normal saline bolus, IV 4mg Zofran x1, IV 30 mg Toradol x1. Chest x-ray impression, no signs of pleural effusion, no pneumothorax, no sign of pneumonia. White blood cell count 4.3, hemoglobin 15.5, platelet 102, sodium 135, potassium 3.9, BUN 27, creatinine 1.2, AST 57, ALT 42, troponin x1 negative. Patient admitted for ambulatory dysfunction secondary to generalized weakness and history of parkinsonism. I have spoken with patient's , Violet, as well and she states that she currently does not want to provide treatment to patient for COVID-19 infection including dexamethasone, remdesivir during admission. She stated that she "will think about it" and if she changes her mind she will let us know. I have also informed Violet that if the patient deteriorates from current COVID-19 infection, patient to be made comfort care. Violet agrees. Patient symptoms improved significantly overnight with IV fluids and current home medications including carbidopa/levodopa, amantadine, L-dopa powder supplement, vitamin B supplements. Patient discharged in stable condition, per physical therapy would benefit from walker. Patients cutting inspector states that patient has a walker at home. DME was initially completed for a walker but cancelled. - Discharge Data Discharge Date: 11/17/20 Discharge Disposition: Home, Self-Care 01 Condition: Stable - Referral to Home Health Primary Care Physician: Chente Fisher MD - Discharge Diagnosis/Problem(s) (1) Parkinson disease SNOMED Code(s): 60259841 ICD Code: G20 - PARKINSON'S DISEASE Status: Acute Current Visit: Yes (2) Weakness SNOMED Code(s): 95434958 ICD Code: R53.1 - WEAKNESS Status: Acute Current Visit: Yes (3) Diarrhea SNOMED Code(s): 78363973 ICD Code: R19.7 - DIARRHEA, UNSPECIFIED Status: Acute Current Visit: Yes (4) COVID-19 SNOMED Code(s): 147585499 ICD Code: U07.1 - COVID-19 Status: Acute Current Visit: Yes - Patient Summary/Data Consults: Consultations 11/16/20 14:53 PT Evaluation and Treatment [CONS] Routine - Patient Instructions Diet: Usual Diet as Tolerated Activity: As Tolerated Showering/Bathing: May Shower Notify Provider of: Fever, Increased Pain, Nausea and/or Vomiting Other/Special Instructions: Patient to report to emergency department if experiencing shortness of breath, wheezing, chest pain. Patient to report signs of fever, chills, nausea, vomiting, abdominal pain, diarrhea to primary care physician. - Discharge Plan Home Medications: Home Meds Tamsulosin [Flomax] 0.4 mg PO DAILY 09/13/13 [History] Carbidopa/Levodopa [Sinemet Cr 25-100 mg] 2.5 tab PO QID 05/22/14 [History] [place] Oil 1 dose PO ASDIRECTED PRN 01/01/18 [History] Cholecalciferol (Vitamin D3) [Vitamin D3] 1,000 units PO DAILY 01/01/18 [History] L.acidoph,Paracasei, B.lactis [Probiotic] 1 tab PO DAILY 01/01/18 [History] Mirtazapine 5 mg PO BEDTIME 01/01/18 [History] Multivitamin [Multivitamins] 1 tab PO DAILY 01/01/18 [History] [place]-3S/DHA/Epa/Fish Oil [[place]-3 Fish Oil 1,000 mg Sfgl] 1,000 mg PO DAILY 01/01/18 [History] Saw [place] 160 mg PO DAILY 01/01/18 [History] Turmeric Root Extract [Turmeric] 500 mg PO DAILY 01/01/18 [History] Vitamin B Complex 4 tab PO BID 01/01/18 [History] Carbidopa/Levodopa/Entacapone [Carbidopa-Levodopa 100 mg-Enta] 25 - 100 mg PO TID 11/16/20 [History] Niacin 400 mg PO QID 11/16/20 [History] amantadine HCL [Amantadine] 100 mg PO BID 11/16/20 [History] Patient Handouts: Diarrhea, Adult, COVID-19, COVID-19 Vaccine Information, Parkinson's Disease, [id number], COVID-19: Quarantine vs. Isolation - [facility] [place] (02/09/2020) Forms: ED Department Discharge Referrals: Song Tinoco MD [Ordering Only Provider] - - Discharge Summary/Plan Comment DC Time >30 min.: Yes Total # of Minutes for Discharge Time: 35 - General Info Date of Service: 11/17/20 Subjective Update: Internal Medicine Specialist is in patient's room upon questioning. Internal Medicine Specialist states that patient is more alert, was able to ambulate with physical therapy. Internal Medicine Specialist denies that patient had any complaints of nausea, vomiting, abdominal pain, fever, c hills. - Review of Systems General: Denies: Fever, Chills Pulmonary: Denies: Shortness of Breath, Cough Cardiovascular: Denies: Chest Pain Gastrointestinal: Denies: Abdominal Pain, Nausea, Vomiting - Patient Data Vitals - Most Recent: Last Vital Signs Temp 98.7 F 11/17/20 09:55 Pulse 81 11/17/20 09:55 Resp 18 11/17/20 09:55 BP 116/80 11/17/20 09:55 Pulse Ox 99 11/17/20 09:55 Weight - Most Recent: 139 lb 15.896 oz I&O - Last 24 hours: Intake & Output 11/16/20 11/17/20 11/17/20 22:59 06:59 14:59 Intake Total 500 Output Total 100 380 Balance -100 120 Lab Results - Last 24 hrs: Laboratory Results - last 24 hr 11/16/20 11/16/20 11/16/20 Range/Units 11:00 11:00 11:22 WBC (4.0-11.0) K/uL RBC (4.50-5.90) M/uL Hgb (13.0-17.0) g/dL Hct (38.0-50.0) % MCV (80.0-98.0) fL MCH (27.0-32.0) pg MCHC (31.0-37.0) g/dL RDW Std Deviation (28.0-62.0) fl RDW Coeff of Angélica (11.0-15.0) % Plt Count (150-400) K/uL MPV (7.40-12.00) fL Neut % (Auto) (48.0-80.0) % Lymph % (Auto) (16.0-40.0) % [place] % (Auto) (0.0-15.0) % Eos % (Auto) (0.0-7.0) % Baso % (Auto) (0.0-1.5) % Neut # (Auto) (1.4-5.7) K/uL Lymph # (Auto) (0.6-2.4) K/uL [place] # (Auto) (0.0-0.8) K/uL Eos # (Auto) (0.0-0.7) K/uL Baso # (Auto) (0.0-0.1) K/uL Nucleated RBC % /100WBC Nucleated RBCs # K/uL Sodium (136-148) mmol/L Potassium (3.5-5.1) mmol/L Chloride (98-107) mmol/L Carbon Dioxide (21.0-32.0) mmol/L BUN (7.0-18.0) mg/dL Creatinine (0.8-1.3) mg/dL Est Cr Clr Drug Dosing mL/min Estimated GFR (MDRD) ml/min Glucose (74-106) mg/dL Calcium (8.5-10.1) mg/dL Phosphorus (2.6-4.7) mg/dL Magnesium (1.8-2.4) mg/dL Troponin I < 0.050 (0.000-0.056) ng/mL Vitamin D 25-Hydroxy 43.4 (30.0-100.0) ng/mL Urine Color Urine Appearance Urine pH (5.0-8.0) Ur Specific [place] (1.001-1.035) Urine Protein (NEGATIVE) mg/dL Urine Glucose (UA) (NEGATIVE) mg/dL Urine Ketones (NEGATIVE) mg/dL Urine Occult Blood (NEGATIVE) Urine Nitrite (NEGATIVE) Urine Bilirubin (NEGATIVE) Urine Urobilinogen (<2.0) EU/dL Ur Leukocyte Esterase (NEGATIVE) Urine RBC (0-2/HPF) Urine WBC (0-5/HPF) Ur Epithelial Cells (NONE-FEW) Urine Bacteria (NEGATIVE) Urine Mucus (NONE-MOD) SARS-CoV-2 RNA ([place]) POSITIVE H (NEGATIVE) 11/16/20 11/17/20 11/17/20 Range/Units 16:30 06:18 06:18 WBC 4.41 (4.0-11.0) K/uL RBC 4.19 L (4.50-5.90) M/uL Hgb 13.9 (13.0-17.0) g/dL Hct 39.7 (38.0-50.0) % MCV 94.7 (80.0-98.0) fL MCH 33.2 H (27.0-32.0) pg MCHC 35.0 (31.0-37.0) g/dL RDW Std Deviation 44.6 (28.0-62.0) fl RDW Coeff of Angélica 13 (11.0-15.0) % Plt Count 89 L (150-400) K/uL MPV 11.10 (7.40-12.00) fL Neut % (Auto) 80.7 H (48.0-80.0) % Lymph % (Auto) 13.4 L (16.0-40.0) % [place] % (Auto) 5.9 (0.0-15.0) % Eos % (Auto) 0.0 (0.0-7.0) % Baso % (Auto) 0.0 (0.0-1.5) % Neut # (Auto) 3.6 (1.4-5.7) K/uL Lymph # (Auto) 0.6 (0.6-2.4) K/uL [place] # (Auto) 0.3 (0.0-0.8) K/uL Eos # (Auto) 0.0 (0.0-0.7) K/uL Baso # (Auto) 0.0 (0.0-0.1) K/uL Nucleated RBC % 0.0 /100WBC Nucleated RBCs # 0 K/uL Sodium 135 L (136-148) mmol/L Potassium 4.2 (3.5-5.1) mmol/L Chloride 101 (98-107) mmol/L Carbon Dioxide 27.1 (21.0-32.0) mmol/L BUN 20 H (7.0-18.0) mg/dL Creatinine 1.1 (0.8-1.3) mg/dL Est Cr Clr Drug Dosing 57.73 mL/min Estimated GFR (MDRD) > 60.0 ml/min Glucose 107 H (74-106) mg/dL Calcium 8.1 L (8.5-10.1) mg/dL Phosphorus 3.1 (2.6-4.7) mg/dL Magnesium 1.9 (1.8-2.4) mg/dL Troponin I (0.000-0.056) ng/mL Vitamin D 25-Hydroxy (30.0-100.0) ng/mL Urine Color YELLOW Urine Appearance CLOUDY Urine pH 6.0 (5.0-8.0) Ur Specific [place] 1.025 (1.001-1.035) Urine Protein NEGATIVE (NEGATIVE) mg/dL Urine Glucose (UA) NEGATIVE (NEGATIVE) mg/dL Urine Ketones TRACE H (NEGATIVE) mg/dL Urine Occult Blood MODERATE H (NEGATIVE) Urine Nitrite NEGATIVE (NEGATIVE) Urine Bilirubin NEGATIVE (NEGATIVE) Urine Urobilinogen 0.2 (<2.0) EU/dL Ur Leukocyte Esterase NEGATIVE (NEGATIVE) Urine RBC 40-50 (0-2/HPF) Urine WBC 2-4 (0-5/HPF) Ur Epithelial Cells FEW (NONE-FEW) Urine Bacteria FEW (NEGATIVE) Urine Mucus LIGHT (NONE-MOD) SARS-CoV-2 RNA (ETTA) (NEGATIVE) Med Orders - Current: Current Medications Acetaminophen (Acetaminophen 325 Mg Tab) 650 mg PO Q4H PRN PRN Reason: Pain (Mild 1-3)/fever Last Admin: 11/16/20 23:23 Dose: 650 mg Documented by: Albuterol (Albuterol 0.083% 2.5 Mg/3 Ml Neb Soln) 2.5 mg NEB Q2H PRN PRN Reason: Shortness Of Breath/wheezing Pantoprazole Sodium 40 mg/ (Sodium Chloride) 10 mls @ 300 mls/hr IV Q24H [facility] Last Admin: 11/16/20 17:52 Dose: 300 mls/hr Documented by: Lactated Ringer's (Ringers, Lactated) 1,000 mls @ 100 mls/hr IV ASDIRECTED [facility] Last Admin: 11/17/20 03:36 Dose: 100 mls/hr Documented by: Ondansetron HCl (Ondansetron 4 Mg/2 Ml Sdv) 4 mg IVPUSH Q4H PRN PRN Reason: Nausea/Vomiting Thiamine 500mg (Vitamin B1 Capsule) 4 each PO 0700,1100 [facility] Last Admin: 11/17/20 10:48 Dose: 4 each Documented by: Carbidopa/Levodopa (25-100mg Tab) 0.5 each PO 0700,1100,1600 [facility] Last Admin: 11/17/20 10:44 Dose: 0.5 each Documented by: L-Dopa Fcc Grade 250 (G) 0.4 each PO 1100,1600 [facility] Last Admin: 11/17/20 10:44 Dose: 0.4 each Documented by: Amantadine 100mg Tab 1 each PO 0700,1600 [facility] Last Admin: 11/17/20 06:25 Dose: 1 each Documented by: Niacin 100 Mg (Vitamin B3) 4 each PO 0700,1100,1600,2000 [facility] Last Admin: 11/17/20 10:46 Dose: 4 each Documented by: Sodium Chloride (Sodium Chloride 0.9% 10 Ml Syringe) 10 ml FLUSH ASDIRECTED PRN PRN Reason: Keep Vein Open Last Admin: 11/16/20 11:10 Dose: 10 ml Documented by: Sodium Chloride (Sodium Chloride 0.9% 2.5 Ml Syringe) 2.5 ml FLUSH ASDIRECTED PRN PRN Reason: Keep Vein Open Last Admin: 11/16/20 11:10 Dose: 2.5 ml Documented by: Discontinued Medications Amantadine HCl (Amantadine 100 Mg Cap) 100 mg PO BID [facility] Last Admin: 11/16/20 21:49 Dose: Not Given Documented by: Sodium Chloride (Normal Saline) 1,000 mls @ 999 mls/hr IV .BOLUS ONE Stop: 11/16/20 11:58 Last Admin: 11/16/20 11:10 Dose: 999 mls/hr Documented by: Lactated Ringer's (Ringers, Lactated) 1,000 mls @ 100 mls/hr IV ASDIRECTED [facility] Ketorolac Tromethamine (Ketorolac 30 Mg/Ml Sdv) 30 mg IVPUSH ONETIME ONE Stop: 11/16/20 10:59 Last Admin: 11/16/20 11:10 Dose: 30 mg Documented by: Ondansetron HCl (Ondansetron 4 Mg/2 Ml Sdv) 4 mg IVPUSH ONETIME ONE Stop: 11/16/20 10:59 Last Admin: 11/16/20 11:10 Dose: 4 mg Documented by: - Exam General: Reports: Alert Lungs: Reports: Clear to Auscultation, Normal Respiratory Effort Cardiovascular: Reports: Regular Rate, Regular Rhythm GI/Abdominal Exam: Soft, Non-Tender
== END 2020-11-17 12:55 | disposition home or self-care (01) | DRG 56 ==
LOC: MW.ED 10:53 → MW.MS 14:27
PROVIDERS: ADMIT Student in an Organized Health Care Education/Training Program; ATTEND Student in an Organized Health Care Education/Training Program
DX: G20 Parkinson's disease (principal); U07.1 COVID-19; R19.7 Diarrhea, unspecified; K59.09 Other constipation; N40.0 Benign prostatic hyperplasia without lower urinary tract symptoms; F41.9 Anxiety disorder, unspecified; F32.9 Major depressive disorder, single episode, unspecified; Z79.899 Other long term (current) drug therapy; Z98.52 Vasectomy status; Z90.89 Acquired absence of other organs
CPT/HCPCS: 36415; 71045; 80053; 82306; 83735; 84484; 85025; 93005; J1885; J2405; J7030; U0002; 80048; 81001; 84100; 96374; 96375; 97162-GP; 99285-25; A9270-GY; C9113; J7120

== ENCOUNTER 2020-11-22 23:41 | Observation (INO) | payer MEDICARE, BC ==
[2020-11-23 00:22] LABS: BLOOD UREA NITROGEN,BUN 29 mg/dL (7.0-18.0); CARBON DIOXIDE,CO2 28.9 mmol/L (21.0-32.0); CHLORIDE,CL 102 mmol/L (98-107); GLUCOSE RANDOM 127 mg/dL (74-106); POTASSIUM,K 4.3 mmol/L (3.5-5.1); SODIUM,NA 138 mmol/L (136-148)
[2020-11-23] MEDS ORDERED: Sodium Chloride 0.9% 1,000 ML IV ONE (00:36)
[2020-11-23] MEDS ORDERED: Iopamidol 755 MG/ML 500 ML Multipack Bottle IVPUSH STA (01:15)
--- NOTE | 2020-11-23 02:00 | CT ---
Indication: Shortness of breath Technique: Contrast CT PE with 50 Isovue 370 Comparison: CT chest 10/23/2019 Findings: Normal caliber thoracic aorta. No pulmonary emboli. Heart size normal. No pericardial effusion or mediastinal or adenopathy. No pneumothorax. Patchy peripheral ground-glass opacities bibasilar dense consolidation. No effusion old right-sided rib fractures. Impression: 1. No pulmonary emboli. 2. Bilateral patchy ground-glass opacities in basilar dense consolidation likely reflecting infectious inflammatory process to include atypical infection such as COVID. Please note that all CT scans at this facility use dose modulation, iterative reconstruction, and/or weight-based dosing when appropriate to reduce radiation dose to as low as reasonably achievable. Dictated by Nataly Benitez MD @ 11/23/2020 1:59:39 AM (Electronically Signed)
--- NOTE | 2020-11-23 03:14 | EDM.PDOC ---
ED HPI GENERAL MEDICAL PROBLEM - General Chief Complaint: Respiratory Problem Stated Complaint: LOW OXYGEN Time Seen by Provider: 11/23/20 01:27 - History of Present Illness INITIAL COMMENTS - FREE TEXT/NARRATIVE: HISTORY AND PHYSICAL: History of present illness: This is 70-year-old gentleman with a history significant for Parkinson's who is a DNR per 's request who presents to the ER today secondary to shortness of breath. Patient had a recent admission to the hospital was recently discharged secondary to dehydration from coronavirus infection. At the time of discharge patient did not require any oxygen and was doing well. Family brings the patient back to the ER today secondary to decreased mentation as well as increased hypoxia. Per EMS upon their arrival the patient's pulse ox was 76% on room air. Family reports that he has not had any other complaints. No emesis, no recent fevers, shakes, chills, no diarrhea, no complaints of abdominal pain. Review of systems: As per history of present illness and below otherwise all systems reviewed and negative. Past medical history: As per history of present illness and as reviewed below otherwise noncontributory. Surgical history: As per history of present illness and as reviewed below otherwise noncontributory. Social history: No reported history of drug abuse. Family history: As per history of present illness and as reviewed below otherwise n oncontributory. Physical exam: This patient was seen and evaluated during the 2019 SARS-CoV-2 novel coronavirus pandemic period. Community viral transmission is ongoing at time of this encounter and the emergency department is operating under pandemic response procedures. Constitutional: Patient is oriented to person, place, and time. Appears well- developed and well-nourished. No distress. HEENT: Moist mucous membranes Head: Normocephalic and atraumatic Eyes: Right eye exhibits no discharge. Left eye exhibits no discharge. No scleral icterus Neck: Normal range of motion. No tracheal deviation present. Cardiovascular: Normal rate and regular rhythm. Pulmonary: Effort normal, no respiratory distress. Abdominal: No distention Musculoskeletal: Normal range of motion Neurologic: Alert and oriented to person, place and time. Skin: [place], warm and dry. Psychiatric: Normal mood and affect. Behavior is normal. Judgment and thought content normal. Nursing note and vital signs have been reviewed Upon arrival to the ED, the patient is tachypneic with a pulse ox of 84% on room air. Patient was placed on 6 L of nasal cannula with improvement in his oxygenation status to 93% on room air. Patient has diffuse crackles throughout his lungs. Diagnostics: EKG: November 22, 2020 11:48 PM As interpreted by ER physician: Oscar: Nonspecific ST-T wave abnormalities Normal axis No evidence of ST elevation AK Normal sinus rhythm at 83 bpm Poor baseline with appears to be in normal sinus rhythm. Difficult EKG to interpret secondary to the patient's Parkinson's and shaking and poor baseline EKG. CTA of chest reveals changes consistent with Covid pneumonia. No evidence of PE. Therapeutics: O2 therapy Assessment and plan: 70-year-old gentleman with a history significant for Parkinson's who presents to the ER today with Covid infection. Patient was recently discharged from the hospital secondary to dehydration and diarrhea from his coronavirus infection. At that time he was not hypoxic and was doing well. Patient returns ER today secondary to deterioration in his respiratory status. Patient was hypoxic with altered mentation more than baseline. Upon arrival by EMS he was having a pulse ox in the mid 70s. Upon arrival to the ED his pulse ox was 85% on room air. Patient responded well with supplemental O2. I had a long discussion with the patient's and she is affirmed as during his prior admission, that she would wish that he be a DNR/DNI. She does not wish for him to receive remdesivir therapy. She does not wish for him to be intubated in case of respiratory distress/failure. She does not wish aggressive means of life support including cardiopulmonary resuscitation or medications at would be required to restart his heart if his heart should stop. She has requested that we keep him as comfortable as possible at the goal with his admission is to try to keep him comfortable and to help with his air hunger and oxygenation. Case has been discussed with Dr. Ramirez who agrees with admission for assistance with palliative care. Critical Care: The high probability of sudden, clinically significant deterioration in the patient's condition required the highest level of my preparedness to intervene urgently. The services I provided to this patient were to treat and/or prevent clinically significant deterioration. Services included the following: chart data review, reviewing nursing notes and/or old charts, documentation time, exchange consultant collaboration regarding findings and treatment options, medication orders and management, direct patient care, vital sign assessments and ordering, interpreting and reviewing diagnostic studies/lab tests. Aggregate critical care time includes only time during which I was engaged inwork directly related to the patient's care, as described above, whether at the bedside or elsewhere in the Emergency Department. It did not include time spent performing other reported procedures or the services of residents, students, nurses or physician assistants. Critical Care Time: 35 minutes Definitive disposition and diagnosis as appropriate pending reevaluation and review of above. - Related Data Allergies Allergy/AdvReac Type Severity Reaction Status Date / Time No Known Allergies Allergy Verified 11/22/20 23:53 Home Meds: Home Meds Tamsulosin [Flomax] 0.4 mg PO DAILY 09/13/13 [History] Carbidopa/Levodopa [Sinemet Cr 25-100 mg] 2.5 tab PO QID 05/22/14 [History] [place] Oil 1 dose PO ASDIRECTED PRN 01/01/18 [History] Cholecalciferol (Vitamin D3) [Vitamin D3] 1,000 units PO DAILY 01/01/18 [History] L.acidoph,Paracasei, B.lactis [Probiotic] 1 tab PO DAILY 01/01/18 [History] Mirtazapine 5 mg PO BEDTIME 01/01/18 [History] Multivitamin [Multivitamins] 1 tab PO DAILY 01/01/18 [History] [place]-3S/DHA/Epa/Fish Oil [[place]-3 Fish Oil 1,000 mg Sfgl] 1,000 mg PO DAILY 01/01/18 [History] Saw [place] 160 mg PO DAILY 01/01/18 [History] Turmeric Root Extract [Turmeric] 500 mg PO DAILY 01/01/18 [History] Vitamin B Complex 4 tab PO BID 01/01/18 [History] Carbidopa/Levodopa/Entacapone [Carbidopa-Levodopa 100 mg-Enta] 25 - 100 mg PO TID 11/16/20 [History] Niacin 400 mg PO QID 11/16/20 [History] amantadine HCL [Amantadine] 100 mg PO BID 11/16/20 [History] Past Medical History - Past Health History Medical/Surgical History: Denies Medical/Surgical History HEENT History: Reports: None Cardiovascular History: Reports: Other (See Below) Other Cardiovascular History: low blood pressures per Respiratory History: Reports: None Gastrointestinal History: Reports: Chronic Constipation, Other (See Below) Other Gastrointestinal History: recently has increased heartburn but does not take anything for this Genitourinary History: Reports: BPH, Prostate Disorder Musculoskeletal History: Reports: Fracture Other Musculoskeletal History: fx elbow in highschool Neurological History: Reports: Parkinson's Psychiatric History: Reports: Anxiety, Depression Endocrine/Metabolic History: Reports: None Insulin Pump Model and Pharmacy Technologist: None Hematologic History: Reports: None Immunologic History: Reports: None Oncologic (Cancer) History: Reports: None Dermatologic History: Reports: Eczema - Infectious Disease History Infectious Disease History: Reports: Chicken Pox, Novel Coronavirus - Past Surgical History Head Surgeries/Procedures: Reports: None HEENT Surgical History: Reports: Myringotomy w Tube(s), Naso-Sinus Surgery, Tonsillectomy GI Surgical History: Reports: Colonoscopy Male Surgical History: Reports: Vasectomy Social & Family History - Family History Family Medical History: No Pertinent Family History - Caffeine Use Caffeine Use: Reports: None ED ROS GENERAL - Review of Systems Review Of Systems: See Below ED EXAM, GENERAL - Physical Exam Exam: See Below Course - Vital Signs Last Recorded V/S: Last Vital Signs Temp 99.5 F 11/23/20 02:57 Pulse 88 11/23/20 02:57 Resp 26 H 11/23/20 02:57 BP 115/87 11/23/20 02:57 Pulse Ox 93 L 11/23/20 02:57 - Orders/Labs/Meds Orders: Active Orders 24 hr Category Date Time Status Patient Status [ADT] Routine ADT 11/23/20 03:06 Ordered Resuscitation Status Stat Resus Stat 11/23/20 03:05 Ordered Labs: Laboratory Tests 11/22/20 11/22/20 11/22/20 Range/Units 23:40 23:40 23:40 WBC 6.84 (4.0-11.0) K/uL RBC 4.65 (4.50-5.90) M/uL Hgb 15.7 (13.0-17.0) g/dL Hct 43.4 (38.0-50.0) % MCV 93.3 (80.0-98.0) fL MCH 33.8 H (27.0-32.0) pg MCHC 36.2 (31.0-37.0) g/dL RDW Std Deviation 42.7 (28.0-62.0) fl RDW Coeff of Angélica 13 (11.0-15.0) % Plt Count 65 L (150-400) K/uL MPV 11.60 (7.40-12.00) fL Neut % (Auto) 90.7 H (48.0-80.0) % Lymph % (Auto) 6.4 L (16.0-40.0) % [place] % (Auto) 2.9 (0.0-15.0) % Eos % (Auto) 0.0 (0.0-7.0) % Baso % (Auto) 0.0 (0.0-1.5) % Neut # (Auto) 6.2 H (1.4-5.7) K/uL Lymph # (Auto) 0.4 L (0.6-2.4) K/uL [place] # (Auto) 0.2 (0.0-0.8) K/uL Eos # (Auto) 0.0 (0.0-0.7) K/uL Baso # (Auto) 0.0 (0.0-0.1) K/uL Sodium 138 (136-148) mmol/L Potassium 4.3 (3.5-5.1) mmol/L Chloride 102 (98-107) mmol/L Carbon Dioxide 28.9 (21.0-32.0) mmol/L BUN 29 H (7.0-18.0) mg/dL Creatinine 1.2 (0.8-1.3) mg/dL Est Cr Clr Drug Dosing TNP Estimated GFR (MDRD) > 60.0 ml/min Glucose 127 H (74-106) mg/dL Lactic Acid 1.5 (0.4-2.0) mmol/L Calcium 8.6 (8.5-10.1) mg/dL Total Bilirubin 1.1 H (0.2-1.0) mg/dL AST 101 H (15-37) IU/L ALT 62 (14-63) IU/L Alkaline Phosphatase 79 (46-116) U/L Total Protein 6.9 (6.4-8.2) g/dL Albumin 2.9 L (3.4-5.0) g/dL Globulin 4.0 (2.6-4.0) g/dL Albumin/Globulin Ratio 0.7 L (0.9-1.6) Meds: Medications Discontinued Medications Generic Name Dose Route Start Last Admin Trade Name Jam PRN Reason Stop Dose Admin Sodium Chloride 1,000 mls @ 999 mls/hr 11/23/20 00:36 11/23/20 00:50 Normal Saline IV 11/23/20 01:36 999 mls/hr .Bolus ONE Administration Iopamidol 50 ml 11/23/20 01:15 11/23/20 01:16 Iopamidol 755 Mg/Ml 500 Ml Multipack Bottle IVPUSH 11/23/20 01:16 50 ml ONETIME STA Administration Departure - Departure Time of Disposition: 03:14 Disposition: Refer to Observation Condition: Fair Clinical Impression: COVID-19 virus infection, Pneumonia due to COVID-19 virus, Respiratory failure with hypoxia, Parkinsons, DNR no code (do not resuscitate) - Discharge Information Referrals: Song Tinoco MD [Primary Care Provider] - Sepsis Event Note (ED) - Focused Exam Vital Signs: Vital Signs Temp Pulse Resp BP Pulse Ox 11/23/20 02:57 99.5 F 88 26 H 115/87 93 L 11/23/20 01:04 90 28 H 106/70 91 L 11/23/20 00:10 92 L 11/22/20 23:53 99.3 F 86 28 H 106/65 86 L - My Orders Last 24 Hours: My Active Orders 11/23/20 03:05 Resuscitation Status Stat 11/23/20 03:06 Patient Status [ADT] Routine - Assessment/Plan Last 24 Hours: My Active Orders 11/23/20 03:05 Resuscitation Status Stat 11/23/20 03:06 Patient Status [ADT] Routine
[2020-11-23] MEDS ORDERED: Acetaminophen 1,000 MG in Premix Bag 1 BAG IV PRN (06:05)
[2020-11-23] MEDS ORDERED: Lactated Ringers 1,000 ML IV SCH ×2 (06:15→18:45)
[2020-11-23] MEDS: Albuterol/Ipratropium 3.0-0.5 MG/3 ML Neb Soln NEB SCH ×2 (06:31→09:54)
[2020-11-23] MEDS ORDERED: Acetaminophen 500 MG in Premix Bag 1 BAG IV PRN (07:50)
[2020-11-23] MEDS: Morphine 2 MG/ML SYRINGE IVPUSH PRN ×2 (08:51→15:09)
[2020-11-23] MEDS ORDERED: Dexamethasone 10 MG/ML SDV IVPUSH SCH (09:00)
--- NOTE | 2020-11-23 11:07 | PCM.HP.2 ---
H&P History of Present Illness - General Date of Service: 11/23/20 Admit Problem/Dx: Admission Diagnosis/Problem Admission Diagnosis/Problem Respiratory failure with hypoxia - History of Present Illness Initial Comments - Free Text/Narative: 70-year-old gentleman with a history significant for Parkinson's who presents to the ER today Covid infection. Patient was recently discharged from the hospital secondary to dehydration and diarrhea from his coronavirus infection. At that time he was not hypoxic and was doing well. Patient returns ER today secondary to deterioration in his respiratory status. Patient was hypoxic with altered mentation more than baseline. Upon arrival by EMS he was having a pulse ox in the mid 70s. Upon arrival to the ED his pulse ox was 85% on room air. Patient responded well with supplemental O2. ER physician had a long discusion with patients , she wished patient to be DNR/DNI, She does not wish for him to receive remdesivir therapy. She does not wish for him to be intubated in case of respiratory distress/failure. She does not wish aggressive means of life [place] pport including cardiopulmonary resuscitation or medications at would be required to restart his heart if his heart should stop. She has requested that we keep him as comfortable as possible at the goal with his admission is to try to keep him comfortable and to help with his air hunger and oxygenation. Patient was admitted to hospital for comfort measures. - Related Data Allergies/Adverse Reactions: Allergies Allergy/AdvReac Type Severity Reaction Status Date / Time No Known Allergies Allergy Verified 11/22/20 23:53 Home Medications: Home Meds Tamsulosin [Flomax] 0.4 mg PO DAILY 09/13/13 [History] Carbidopa/Levodopa [Sinemet Cr 25-100 mg] 2.5 tab PO QID 05/22/14 [History] [place] Oil 1 dose PO ASDIRECTED PRN 01/01/18 [History] Cholecalciferol (Vitamin D3) [Vitamin D3] 1,000 units PO DAILY 01/01/18 [History] L.acidoph,Paracasei, B.lactis [Probiotic] 1 tab PO DAILY 01/01/18 [History] Mirtazapine 5 mg PO BEDTIME 01/01/18 [History] Multivitamin [Multivitamins] 1 tab PO DAILY 01/01/18 [History] [place]-3S/DHA/Epa/Fish Oil [[place]-3 Fish Oil 1,000 mg Sfgl] 1,000 mg PO DAILY 01/01/18 [History] Saw [place] 160 mg PO DAILY 01/01/18 [History] Turmeric Root Extract [Turmeric] 500 mg PO DAILY 01/01/18 [History] Vitamin B Complex 4 tab PO BID 01/01/18 [History] Carbidopa/Levodopa/Entacapone [Carbidopa-Levodopa 100 mg-Enta] 25 - 100 mg PO TID 11/16/20 [History] Niacin 400 mg PO QID 11/16/20 [History] amantadine HCL [Amantadine] 100 mg PO BID 11/16/20 [History] Past Medical History - Past Health History Medical/Surgical History: Denies Medical/Surgical History HEENT History: Reports: None Cardiovascular History: Reports: Other (See Below) Other Cardiovascular History: low blood pressures per Respiratory History: Reports: None Gastrointestinal History: Reports: Chronic Constipation, Other (See Below) Other Gastrointestinal History: recently has increased heartburn but does not take anything for this Genitourinary History: Reports: BPH, Prostate Disorder Musculoskeletal History: Reports: Fracture Other Musculoskeletal History: fx elbow in highschool Neurological History: Reports: Parkinson's Psychiatric History: Reports: Anxiety, Depression Endocrine/Metabolic History: Reports: None Insulin Pump Model and Manager Testing: None Hematologic History: Reports: None Immunologic History: Reports: None Oncologic (Cancer) History: Reports: None Dermatologic History: Reports: Eczema - Infectious Disease History Infectious Disease History: Reports: Chicken Pox, Novel Coronavirus - Past Surgical History Head Surgeries/Procedures: Reports: None HEENT Surgical History: Reports: Myringotomy w Tube(s), Naso-Sinus Surgery, Tonsillectomy GI Surgical History: Reports: Colonoscopy Male Surgical History: Reports: Vasectomy Social & Family History - Family History Family Medical History: No Pertinent Family History - Caffeine Use Caffeine Use: Reports: None H&P Review of Systems - Review of Systems: Review Of Systems: Unable To Obtain Reason Not Obtained: obtunded Exam - Exam Exam: See Below - Vital Signs Vital Signs: Last Vital Signs Temp 37.4 C 11/23/20 08:00 Pulse 78 11/23/20 08:00 Resp 32 H 11/23/20 08:00 BP 113/61 11/23/20 08:00 Pulse Ox 94 L 11/23/20 08:00 - Exam General: Lethargic, Obtunded. No: Alert, Oriented Lungs: Decreased Breath Sounds, Crackles, Rales Cardiovascular: Regular Rate, Regular Rhythm GI/Abdominal Exam: Normal Bowel Sounds, Soft, Non-Tender - Patient Data Lab Results Last 24 hrs: Laboratory Results - last 24 hr 11/22/20 11/22/20 11/22/20 Range/Units 23:40 23:40 23:40 WBC 6.84 (4.0-11.0) K/uL RBC 4.65 (4.50-5.90) M/uL Hgb 15.7 (13.0-17.0) g/dL Hct 43.4 (38.0-50.0) % MCV 93.3 (80.0-98.0) fL MCH 33.8 H (27.0-32.0) pg MCHC 36.2 (31.0-37.0) g/dL RDW Std Deviation 42.7 (28.0-62.0) fl RDW Coeff of Angélica 13 (11.0-15.0) % Plt Count 65 L (150-400) K/uL MPV 11.60 (7.40-12.00) fL Neut % (Auto) 90.7 H (48.0-80.0) % Lymph % (Auto) 6.4 L (16.0-40.0) % [place] % (Auto) 2.9 (0.0-15.0) % Eos % (Auto) 0.0 (0.0-7.0) % Baso % (Auto) 0.0 (0.0-1.5) % Neut # (Auto) 6.2 H (1.4-5.7) K/uL Lymph # (Auto) 0.4 L (0.6-2.4) K/uL [place] # (Auto) 0.2 (0.0-0.8) K/uL Eos # (Auto) 0.0 (0.0-0.7) K/uL Baso # (Auto) 0.0 (0.0-0.1) K/uL Sodium 138 (136-148) mmol/L Potassium 4.3 (3.5-5.1) mmol/L Chloride 102 (98-107) mmol/L Carbon Dioxide 28.9 (21.0-32.0) mmol/L BUN 29 H (7.0-18.0) mg/dL Creatinine 1.2 (0.8-1.3) mg/dL Est Cr Clr Drug Dosing TNP Estimated GFR (MDRD) > 60.0 ml/min Glucose 127 H (74-106) mg/dL Lactic Acid 1.5 (0.4-2.0) mmol/L Calcium 8.6 (8.5-10.1) mg/dL Total Bilirubin 1.1 H (0.2-1.0) mg/dL AST 101 H (15-37) IU/L ALT 62 (14-63) IU/L Alkaline Phosphatase 79 (46-116) U/L Total Protein 6.9 (6.4-8.2) g/dL Albumin 2.9 L (3.4-5.0) g/dL Globulin 4.0 (2.6-4.0) g/dL Albumin/Globulin Ratio 0.7 L (0.9-1.6) Result Diagrams: 11/24/20 05:40 11/24/20 05:40 Sepsis Event Note - Evaluation Sepsis Screening Result: No Definite Risk - Focused Exam Vital Signs: Vital Signs Temp Pulse Resp BP Pulse Ox 11/23/20 08:00 37.4 C 78 32 H 113/61 94 L 11/23/20 07:49 35.9 C L 99 20 122/78 92 L 11/23/20 06:00 37.6 C 75 22 H 98/52 L 91 L 11/23/20 02:57 37.5 C 88 26 H 115/87 93 L 11/23/20 01:04 90 28 H 106/70 91 L 11/23/20 00:10 92 L 11/22/20 23:53 37.4 C 86 28 H 106/65 86 L - Problem List (1) Respiratory failure with hypoxia SNOMED Code(s): 88155245306153041 ICD Code: J96.91 - RESPIRATORY FAILURE, UNSPECIFIED WITH HYPOXIA Status: Acute Current Visit: Yes (2) Hypoxia SNOMED Code(s): 100992557 ICD Code: R09.02 - HYPOXEMIA Status: Acute Current Visit: Yes (3) COVID-19 virus infection SNOMED Code(s): 352605137 ICD Code: U07.1 - COVID-19 Status: Acute Current Visit: Yes (4) DNR no code (do not resuscitate) Status: Acute Current Visit: Yes (5) Pneumonia due to COVID-19 virus SNOMED Code(s): 687286872391345857 ICD Code: U07.1 - COVID-19; J12.82 - PNEUMONIA DUE TO CORONAVIRUS DISEASE 2018 Status: Acute Current Visit: Yes (6) Palliative care status SNOMED Code(s): 002407777 ICD Code: Z51.5 - ENCOUNTER FOR PALLIATIVE CARE Status: Acute Current Visit: Yes Problem List Initiated/Reviewed/Updated: Yes Orders Last 24hrs: Active Orders 24 hr Category Date Time Status Patient Status [ADT] Routine ADT 11/23/20 03:06 Active Antiembolic Devices [RC] PER UNIT ROUTINE Care 11/23/20 06:08 Active Oxygen Therapy [RC] ASDIRECTED Care 11/23/20 06:08 Active RT Aerosol Therapy [RC] ASDIRECTED Care 11/23/20 06:05 Active Consult to Hospice [CONS] Routine Cons 11/23/20 06:08 Active Regular Diet [DIET] Diet 11/23/20 Breakfast Active Acetaminophen [Ofirmev 1000 mg/100 ml] 500 mg Med 11/23/20 07:50 Active Premix Bag 1 bag IV Q4H Albuterol/Ipratropium [DuoNeb 3.0-0.5 MG/3 ML] Med 11/23/20 06:00 Active 3 ml NEB Q4HRRT Lactated Ringers [Ringers, Lactated] 1,000 ml Med 11/23/20 06:15 Active IV ASDIRECTED Morphine Med 11/23/20 06:07 Active 1 mg IVPUSH Q4H PRN dexAMETHasone [Decadron] Med 11/23/20 09:00 Active 6 mg IVPUSH DAILY SCD [Sequential Compression Device] [OM.PC] Routine Oth 11/23/20 06:08 Ordered Resuscitation Status Stat Resus Stat 11/23/20 03:05 Ordered Medication Orders Albuterol/Ipratropium (Albuterol/Ipratropium 3.0-0.5 Mg/3 Ml Neb Soln) 3 ml NEB Q4HRRT JANAE Last Admin: 11/23/20 09:54 Dose: 3 ml Documented by: Admin: 11/23/20 06:31 Dose: 3 ml Documented by: JOSEFINA Dexamethasone (Dexamethasone 10 Mg/Ml Sdv) 6 mg IVPUSH DAILY [facility] Last Admin: 11/23/20 08:50 Dose: 6 mg Documented by: SAMMY Lactated Ringer's (Ringers, Lactated) 1,000 mls @ 75 mls/hr IV ASDIRECTED [facility] Last Admin: 11/23/20 06:54 Dose: 75 mls/hr Documented by: JUSTIN Acetaminophen 500 mg/ Premix 50 mls @ 200 mls/hr IV Q4H PRN PRN Reason: Pain Morphine Sulfate (Morphine 2 Mg/Ml Syringe) 1 mg IVPUSH Q4H PRN PRN Reason: Pain Last Admin: 11/23/20 08:51 Dose: 1 mg Documented by: SAMMY Assessment/Plan Comment:: 70 y/o M admitted for pallative measures for end stage parknisons and acute hypoxic respiratory failure Family declining remdesivir, only want comfort measures start morphine, ativan Hospice consult supportive care as needed Sips of water as tolerated, patient unable to eat or drink IV fluids 1L for some hydration DuoNebs for SOB - Mortality Measure Prognosis:: Poor
[2020-11-23] MEDS ORDERED: Albuterol/Ipratropium 3.0-0.5 MG/3 ML Neb Soln NEB PRN ×2 (11:41→18:39)
[2020-11-23] MEDS ORDERED: Morphine 2 MG/ML SYRINGE IV PRN (17:05)
[2020-11-23] MEDS ORDERED: LORazepam 2 MG/ML SDV IV PRN (17:08)
[2020-11-23] MEDS ORDERED: Atropine 1% Ophth Soln 5 ML BOTTLE SL SCH (17:15)
[2020-11-23] MEDS ORDERED: Atropine 1% Ophth Soln 5 ML BOTTLE SL PRN (17:15)
--- NOTE | 2020-11-23 18:38 | PCM.SN.2 ---
- Free Text/Narrative Note: Upon discussion with patient's and son, family has decided to resend comfort care/hospice status. Patient will currently remain DNR/DNI. Patient was on comfort care measures for roughly 24 hours. Family members state that they would like to "give it one last try "before placing patient on comfort care measures. I have counseled the family on standard of care treatment for Covid patients which includes remdesivir. Family members have declined remdesivir, son states that he does not believe in the efficacy of remdesivir. They would only like IV fluids, steroids and/or antibiotics if appropriate. Of note patient was recently admitted for dehydration secondary to diarrhea from suspected Covid infection. Family members understand that even if patient recovers from this episode, based on patient's current Parkinson's status he may continue to require hospitalizations in the future with poor prognosis. Time Documentation
[2020-11-23] MEDS ORDERED: Enoxaparin 40 MG/0.4 ML Syringe SUBCUT SCH ×2 (19:00→21:30)
[2020-11-23] MEDS ORDERED: Dexamethasone 4 MG Tab PO ONE (19:00)
[2020-11-23] MEDS ORDERED: Dexamethasone 4 MG/ML SDV IVPUSH SCH (20:00)
[2020-11-24 06:30] LABS: BLOOD UREA NITROGEN,BUN 31 mg/dL (7.0-18.0); CARBON DIOXIDE,CO2 27.4 mmol/L (21.0-32.0); CHLORIDE,CL 109 mmol/L (98-107); GLUCOSE RANDOM 135 mg/dL (74-106); POTASSIUM,K 4.3 mmol/L (3.5-5.1); SODIUM,NA 145 mmol/L (136-148)
[2020-11-24] MEDS ORDERED: Dexamethasone 4 MG/ML SDV IVPUSH SCH (09:00)
[2020-11-24] MEDS ORDERED: Lactated Ringers 1,000 ML IV SCH (11:15)
[2020-11-24] MEDS: Carbidopa/Levodopa 25-100 MG Tab.ER PO SCH ×3 (13:40→22:33)
[2020-11-24] MEDS ORDERED: Atropine 1% Ophth Soln 5 ML BOTTLE SL SCH (15:00)
[2020-11-24] MEDS ORDERED: LORazepam 2 MG/ML SDV IVPUSH PRN (15:15)
[2020-11-24] MEDS: Morphine 2 MG/ML SYRINGE IVPUSH PRN ×3 (15:49→21:40)
[2020-11-24] MEDS ORDERED: Atropine 1% Ophth Soln 5 ML BOTTLE SL PRN (16:15)
--- NOTE | 2020-11-24 16:52 | PCM.PN ---
- General Info Date of Service: 11/24/20 Subjective Update: Patient is not alert, not responsive to verbal questioning due to history of Parkinson's disease. Of note patient's and son on admission had decided to place patient with hospice, and comfort care measures during admission stay. Yesterday upon discussion with family members they rescinded hospice/comfort care and asked to provide medical treatment to patient and change status to DNRDNI. Patient is here for Covid pneumonia but family members stated they would not like patient to be treated with remdesivir, which is standard of care currently. Patients status did not improve overnight, patient has required more oxygen for support. Patient is currently not able to eat or drink on his own. Patient cannot communicate. This afternoon I have given patient's family his current status and have discussed patient's worsening condition. Upon reconsideration patient's mother and son have both decided to place patient back on hospice status with comfort care measures during admission. Hospice team has contacted family members this past Thursday. Patient's to reconnect with hospice on Thursday. Patient to remain on comfort care measures during hospitalization. - Review of Systems General: Reports: Other (Patient is noncommunicative, review of systems unable to obtain) - Patient Data Vitals - Most Recent: Last Vital Signs Temp 98.8 F 11/24/20 15:52 Pulse 97 11/24/20 15:52 Resp 31 H 11/24/20 15:52 BP 126/84 11/24/20 15:52 Pulse Ox 90 L 11/24/20 15:52 Weight - Most Recent: 88 lb I&O - Last 24 Hours: Intake & Output 11/24/20 11/24/20 11/24/20 06:59 14:59 22:59 Output Total 450 Balance -450 Lab Results Last 24 Hours: Laboratory Results - last 24 hr 11/24/20 11/24/20 Range/Units 05:40 05:40 WBC 10.87 (4.0-11.0) K/uL RBC 4.30 L (4.50-5.90) M/uL Hgb 14.1 (13.0-17.0) g/dL Hct 40.7 (38.0-50.0) % MCV 94.7 (80.0-98.0) fL MCH 32.8 H (27.0-32.0) pg MCHC 34.6 (31.0-37.0) g/dL RDW Std Deviation 44.6 (28.0-62.0) fl RDW Coeff of Angélica 13 (11.0-15.0) % Plt Count 105 L (150-400) K/uL MPV 11.10 (7.40-12.00) fL Neut % (Auto) 93.8 H (48.0-80.0) % Lymph % (Auto) 3.9 L (16.0-40.0) % [place] % (Auto) 2.2 (0.0-15.0) % Eos % (Auto) 0.0 (0.0-7.0) % Baso % (Auto) 0.1 (0.0-1.5) % Neut # (Auto) 10.2 H (1.4-5.7) K/uL Lymph # (Auto) 0.4 L (0.6-2.4) K/uL [place] # (Auto) 0.2 (0.0-0.8) K/uL Eos # (Auto) 0.0 (0.0-0.7) K/uL Baso # (Auto) 0.0 (0.0-0.1) K/uL Nucleated RBC % 0.0 /100WBC Nucleated RBCs # 0 K/uL Sodium 145 (136-148) mmol/L Potassium 4.3 (3.5-5.1) mmol/L Chloride 109 H (98-107) mmol/L Carbon Dioxide 27.4 (21.0-32.0) mmol/L BUN 31 H (7.0-18.0) mg/dL Creatinine 0.8 (0.8-1.3) mg/dL Est Cr Clr Drug Dosing 49.90 mL/min Estimated GFR (MDRD) > 60.0 ml/min Glucose 135 H (74-106) mg/dL Calcium 8.7 (8.5-10.1) mg/dL Phosphorus 2.7 (2.6-4.7) mg/dL Magnesium 2.3 (1.8-2.4) mg/dL Med Orders - Current: Current Medications Albuterol/Ipratropium (Albuterol/Ipratropium 3.0-0.5 Mg/3 Ml Neb Soln) 3 ml NEB Q4HRRT PRN PRN Reason: Shortness of Breath Atropine Sulfate (Atropine 1% Ophth Soln 5 Ml Bottle) 0 ml SL Q4H PRN PRN Reason: Other Lorazepam (Lorazepam 2 Mg/Ml Sdv) 1 mg IVPUSH Q4H PRN PRN Reason: Agitation Morphine Sulfate (Morphine 2 Mg/Ml Syringe) 1 mg IVPUSH Q2H PRN PRN Reason: Pain Last Admin: 11/24/20 15:49 Dose: 1 mg Documented by: Discontinued Medications Albuterol/Ipratropium (Albuterol/Ipratropium 3.0-0.5 Mg/3 Ml Neb Soln) 3 ml NEB Q4HRRT [facility] Last Admin: 11/23/20 09:54 Dose: 3 ml Documented by: Albuterol/Ipratropium (Albuterol/Ipratropium 3.0-0.5 Mg/3 Ml Neb Soln) 3 ml NEB Q4HRRT PRN PRN Reason: Shortness of Breath Atropine Sulfate (Atropine 1% Ophth Soln 5 Ml Bottle) 0 ml SL Q4H PRN PRN Reason: SECRETIONS Atropine Sulfate (Atropine 1% Ophth Soln 5 Ml Bottle) 0 ml SL Q4H [facility] Last Admin: 11/24/20 16:23 Dose: Not Given Documented by: Carbidopa/Levodopa (Carbidopa/Levodopa 25-100 Mg Tab.Er) 2.5 tab PO QID [facility] Last Admin: 11/24/20 13:40 Dose: Not Given Documented by: Dexamethasone (Dexamethasone 10 Mg/Ml Sdv) 6 mg IVPUSH DAILY [facility] Last Admin: 11/23/20 08:50 Dose: 6 mg Documented by: Dexamethasone (Dexamethasone 4 Mg Tab) 6 mg PO ONETIME ONE Stop: 11/23/20 19:01 Dexamethasone (Dexamethasone 4 Mg/Ml Sdv) 6 mg IVPUSH Q24H [facility] Dexamethasone (Dexamethasone 4 Mg/Ml Sdv) 6 mg IVPUSH Q24H [facility] Last Admin: 11/24/20 08:35 Dose: 6 mg Documented by: Enoxaparin Sodium (Enoxaparin 40 Mg/0.4 Ml Syringe) 40 mg SUBCUT Q24H [facility] Last Admin: 11/23/20 19:47 Dose: Not Given Documented by: Enoxaparin Sodium (Enoxaparin 40 Mg/0.4 Ml Syringe) 40 mg SUBCUT Q24H [facility] Last Admin: 11/24/20 08:56 Dose: Not Given Documented by: Sodium Chloride (Normal Saline) 1,000 mls @ 999 mls/hr IV .Bolus ONE Stop: 11/23/20 01:36 Last Admin: 11/23/20 00:50 Dose: 999 mls/hr Documented by: Lactated Ringer's (Ringers, Lactated) 1,000 mls @ 75 mls/hr IV ASDIRECTED [facility] Last Admin: 11/23/20 06:54 Dose: 75 mls/hr Documented by: Acetaminophen 1,000 mg/ Premix 100 mls @ 400 mls/hr IV Q4H PRN PRN Reason: Pain Acetaminophen 500 mg/ Premix 50 mls @ 200 mls/hr IV Q4H PRN PRN Reason: Pain Lactated Ringer's (Ringers, Lactated) 1,000 mls @ 75 mls/hr IV ASDIRECTED [facility] Last Admin: 11/23/20 20:01 Dose: 75 mls/hr Documented by: Lactated Ringer's (Ringers, Lactated) 1,000 mls @ 75 mls/hr IV ASDIRECTED [facility] Last Admin: 11/24/20 13:03 Dose: 75 mls/hr Documented by: Iopamidol (Iopamidol 755 Mg/Ml 500 Ml Multipack Bottle) 50 ml IVPUSH ONETIME STA Stop: 11/23/20 01:16 Last Admin: 11/23/20 01:16 Dose: 50 ml Documented by: Lorazepam (Lorazepam 2 Mg/Ml Sdv) 1 mg IV Q4H PRN PRN Reason: AGITATION/ANXIETY Morphine Sulfate (Morphine 2 Mg/Ml Syringe) 1 mg IVPUSH Q4H PRN PRN Reason: Pain Last Admin: 11/23/20 15:09 Dose: 1 mg Documented by: Morphine Sulfate (Morphine 2 Mg/Ml Syringe) 1 mg IV Q2H PRN PRN Reason: PAIN/AIR HUNGER Last Admin: 11/23/20 17:43 Dose: 1 mg Documented by: Non-Formulary Medication (Carbidopa/Levodopa/Entacapone [Carbidopa-Levodopa 100 Mg-Enta]) 25 - 100 mg PO TID JANAE - Exam Quality Assessment: Supplemental Oxygen General: No: Alert, Oriented, Cooperative Lungs: Clear to Auscultation Cardiovascular: Regular Rate, Regular Rhythm GI/Abdominal Exam: Soft Extremities: No Pedal Edema Neurological: No: Normal Speech Psy/Mental Status: No: Alert - Patient Data Lab Results Last 24 hrs: Laboratory Results - last 24 hr 11/24/20 11/24/20 Range/Units 05:40 05:40 WBC 10.87 (4.0-11.0) K/uL RBC 4.30 L (4.50-5.90) M/uL Hgb 14.1 (13.0-17.0) g/dL Hct 40.7 (38.0-50.0) % MCV 94.7 (80.0-98.0) fL MCH 32.8 H (27.0-32.0) pg MCHC 34.6 (31.0-37.0) g/dL RDW Std Deviation 44.6 (28.0-62.0) fl RDW Coeff of Angélica 13 (11.0-15.0) % Plt Count 105 L (150-400) K/uL MPV 11.10 (7.40-12.00) fL Neut % (Auto) 93.8 H (48.0-80.0) % Lymph % (Auto) 3.9 L (16.0-40.0) % [place] % (Auto) 2.2 (0.0-15.0) % Eos % (Auto) 0.0 (0.0-7.0) % Baso % (Auto) 0.1 (0.0-1.5) % Neut # (Auto) 10.2 H (1.4-5.7) K/uL Lymph # (Auto) 0.4 L (0.6-2.4) K/uL [place] # (Auto) 0.2 (0.0-0.8) K/uL Eos # (Auto) 0.0 (0.0-0.7) K/uL Baso # (Auto) 0.0 (0.0-0.1) K/uL Nucleated RBC % 0.0 /100WBC Nucleated RBCs # 0 K/uL Sodium 145 (136-148) mmol/L Potassium 4.3 (3.5-5.1) mmol/L Chloride 109 H (98-107) mmol/L Carbon Dioxide 27.4 (21.0-32.0) mmol/L BUN 31 H (7.0-18.0) mg/dL Creatinine 0.8 (0.8-1.3) mg/dL Est Cr Clr Drug Dosing 49.90 mL/min Estimated GFR (MDRD) > 60.0 ml/min Glucose 135 H (74-106) mg/dL Calcium 8.7 (8.5-10.1) mg/dL Phosphorus 2.7 (2.6-4.7) mg/dL Magnesium 2.3 (1.8-2.4) mg/dL Result Diagrams: 11/24/20 05:40 11/24/20 05:40 Sepsis Event Note - Evaluation Sepsis Screening Result: Sepsis Risk - Focused Exam Vital Signs: Vital Signs Temp Pulse Resp BP BP Pulse Ox 11/24/20 15:52 98.8 F 97 31 H 126/84 90 L 11/24/20 12:00 98.9 F 93 18 136/86 90 L 11/24/20 08:37 98.8 F 88 24 H 122/73 90 L - Problem List & Annotations (1) COVID-19 virus infection SNOMED Code(s): 411320821 Code(s): U07.1 - COVID-19 Status: Acute Current Visit: Yes (2) Hypoxia SNOMED Code(s): 563906796 Code(s): R09.02 - HYPOXEMIA Status: Acute Current Visit: Yes (3) Pneumonia due to COVID-19 virus SNOMED Code(s): 461803655425363419 Code(s): U07.1 - COVID-19; J12.82 - PNEUMONIA DUE TO CORONAVIRUS DISEASE 2019 Status: Acute Current Visit: Yes - Problem List Review Problem List Initiated/Reviewed/Updated: Yes - My Orders Last 24 Hours: My Active Orders 11/23/20 18:39 RT Aerosol Therapy [RC] ASDIRECTED 11/23/20 20:53 Urinary Catheter Assessment [RC] ASDIRECTED 11/23/20 21:00 Moise Catheter Insertion [Insert Urinary Catheter] [OM.PC] Q24H 11/24/20 Breakfast Mechanical Soft Diet [DIET] 11/24/20 15:12 Code Status [Resuscitation Status] Routine 11/24/20 15:15 LORazepam [Ativan] 1 mg IVPUSH Q4H PRN 11/24/20 15:18 Morphine 1 mg IVPUSH Q2H PRN 11/24/20 15:20 Communication Order [RC] Q2H 11/24/20 16:15 Atropine 1% [Atropine 1% Ophth Soln] 0 ml SL Q4H PRN - Plan Plan:: 70 y/o M admitted for comfort care measures for end stage parknisons and acute hypoxic respiratory failure secondary to COVID-19 Patient to be placed on comfort care measures, morphine, ativan, atropine. Mild oxygen support as needed. Hospice consult was placed. Patient to be discharged to hospice on Thursday. Moistened sponge stick for dry mouth
[2020-11-24] MEDS: [UNRECOGNIZED DRUG - OTHER] PO SCH (22:32)
[2020-11-24] MEDS: LEVODOPA PO SCH (22:32)
[2020-11-24] MEDS: ENTACAPONE PO SCH (22:32)
[2020-11-24] MEDS: CARBIDOPA PO SCH (22:32)
[2020-11-25] MEDS: Morphine 2 MG/ML SYRINGE IVPUSH PRN ×4 (00:42→14:24)
--- NOTE | 2020-11-25 15:19 | PCM.PN ---
- General Info Date of Service: 11/25/20 - Review of Systems Systems Review Comment:: nonverbal - Patient Data Vitals - Most Recent: Last Vital Signs Temp 37.4 C 11/25/20 07:00 Pulse 84 11/25/20 11:00 Resp 20 11/25/20 07:00 BP 125/85 11/25/20 07:00 Pulse Ox 82 L 11/25/20 11:00 Weight - Most Recent: 39.916 kg I&O - Last 24 Hours: Intake & Output 11/25/20 11/25/20 11/25/20 06:59 14:59 22:59 Output Total 300 Balance -300 Med Orders - Current: Current Medications Albuterol/Ipratropium (Albuterol/Ipratropium 3.0-0.5 Mg/3 Ml Neb Soln) 3 ml NEB Q4HRRT PRN PRN Reason: Shortness of Breath Atropine Sulfate (Atropine 1% Ophth Soln 5 Ml Bottle) 0 ml SL Q4H PRN PRN Reason: Other Lorazepam (Lorazepam 2 Mg/Ml Sdv) 1 mg IVPUSH Q4H PRN PRN Reason: Agitation Morphine Sulfate (Morphine 2 Mg/Ml Syringe) 1 mg IVPUSH Q2H PRN PRN Reason: Pain Last Admin: 11/25/20 14:24 Dose: 1 mg Documented by: Discontinued Medications Albuterol/Ipratropium (Albuterol/Ipratropium 3.0-0.5 Mg/3 Ml Neb Soln) 3 ml NEB Q4HRRT [facility] Last Admin: 11/23/20 09:54 Dose: 3 ml Documented by: Albuterol/Ipratropium (Albuterol/Ipratropium 3.0-0.5 Mg/3 Ml Neb Soln) 3 ml NEB Q4HRRT PRN PRN Reason: Shortness of Breath Atropine Sulfate (Atropine 1% Ophth Soln 5 Ml Bottle) 0 ml SL Q4H PRN PRN Reason: SECRETIONS Atropine Sulfate (Atropine 1% Ophth Soln 5 Ml Bottle) 0 ml SL Q4H [facility] Last Admin: 11/24/20 16:23 Dose: Not Given Documented by: Carbidopa/Levodopa (Carbidopa/Levodopa 25-100 Mg Tab.Er) 2.5 tab PO QID [facility] Last Admin: 11/24/20 22:33 Dose: Not Given Documented by: Dexamethasone (Dexamethasone 10 Mg/Ml Sdv) 6 mg IVPUSH DAILY [facility] Last Admin: 11/23/20 08:50 Dose: 6 mg Documented by: Dexamethasone (Dexamethasone 4 Mg Tab) 6 mg PO ONETIME ONE Stop: 11/23/20 19:01 Dexamethasone (Dexamethasone 4 Mg/Ml Sdv) 6 mg IVPUSH Q24H [facility] Dexamethasone (Dexamethasone 4 Mg/Ml Sdv) 6 mg IVPUSH Q24H [facility] Last Admin: 11/24/20 08:35 Dose: 6 mg Documented by: Enoxaparin Sodium (Enoxaparin 40 Mg/0.4 Ml Syringe) 40 mg SUBCUT Q24H [facility] Last Admin: 11/23/20 19:47 Dose: Not Given Documented by: Enoxaparin Sodium (Enoxaparin 40 Mg/0.4 Ml Syringe) 40 mg SUBCUT Q24H [facility] Last Admin: 11/24/20 08:56 Dose: Not Given Documented by: Sodium Chloride (Normal Saline) 1,000 mls @ 999 mls/hr IV .Bolus ONE Stop: 11/23/20 01:36 Last Admin: 11/23/20 00:50 Dose: 999 mls/hr Documented by: Lactated Ringer's (Ringers, Lactated) 1,000 mls @ 75 mls/hr IV ASDIRECTED [facility] Last Admin: 11/23/20 06:54 Dose: 75 mls/hr Documented by: Acetaminophen 1,000 mg/ Premix 100 mls @ 400 mls/hr IV Q4H PRN PRN Reason: Pain Acetaminophen 500 mg/ Premix 50 mls @ 200 mls/hr IV Q4H PRN PRN Reason: Pain Lactated Ringer's (Ringers, Lactated) 1,000 mls @ 75 mls/hr IV ASDIRECTED [facility] Last Admin: 11/23/20 20:01 Dose: 75 mls/hr Documented by: Lactated Ringer's (Ringers, Lactated) 1,000 mls @ 75 mls/hr IV ASDIRECTED [facility] Last Admin: 11/24/20 13:03 Dose: 75 mls/hr Documented by: Iopamidol (Iopamidol 755 Mg/Ml 500 Ml Multipack Bottle) 50 ml IVPUSH ONETIME STA Stop: 11/23/20 01:16 Last Admin: 11/23/20 01:16 Dose: 50 ml Documented by: Lorazepam (Lorazepam 2 Mg/Ml Sdv) 1 mg IV Q4H PRN PRN Reason: AGITATION/ANXIETY Morphine Sulfate (Morphine 2 Mg/Ml Syringe) 1 mg IVPUSH Q4H PRN PRN Reason: Pain Last Admin: 11/23/20 15:09 Dose: 1 mg Documented by: Morphine Sulfate (Morphine 2 Mg/Ml Syringe) 1 mg IV Q2H PRN PRN Reason: PAIN/AIR HUNGER Last Admin: 11/23/20 17:43 Dose: 1 mg Documented by: Non-Formulary Medication (Carbidopa/Levodopa/Entacapone [Carbidopa-Levodopa 100 Mg-Enta]) 25 - 100 mg PO TID [facility]NAE Last Admin: 11/24/20 22:32 Dose: Not Given Documented by: - Exam General: Lethargic Lungs: Decreased Breath Sounds (agonal breathing) Cardiovascular: Regular Rate, Regular Rhythm GI/Abdominal Exam: Soft, Non-Tender Extremities: Non-Tender, No Pedal Edema Skin: Warm, Dry, Intact Neurological: No New Focal Deficit - Patient Data Result Diagrams: 11/24/20 05:40 11/24/20 05:40 Sepsis Event Note - Evaluation Sepsis Screening Result: Sepsis Risk - Focused Exam Vital Signs: Vital Signs Temp Pulse Resp BP Pulse Ox 11/25/20 11:00 84 82 L 11/25/20 07:00 37.4 C 98 20 125/85 87 L - Problem List & Annotations (1) COVID-19 virus infection SNOMED Code(s): 373947108 Code(s): U07.1 - COVID-19 Status: Acute Current Visit: Yes (2) Palliative care status SNOMED Code(s): 427526393 Code(s): Z51.5 - ENCOUNTER FOR PALLIATIVE CARE Status: Acute Current Visit: Yes (3) Parkinson disease SNOMED Code(s): 37507838 Code(s): G20 - PARKINSON'S DISEASE Status: Acute Current Visit: Yes - Problem List Review Problem List Initiated/Reviewed/Updated: Yes - Plan Plan:: 70 y/o M admitted for comfort care measures for end stage parknisons and acute hypoxic respiratory failure secondary to COVID-19 continue comfort care: Hospice consult was placed. Patient to be discharged to hospice on Thursday. Family aware of deteriorating status
[2020-11-26] MEDS ORDERED: Benzonatate 100 MG Cap PO PRN (00:26)
[2020-11-26 03:57] VITALS: BP 124/76
[2020-11-26 11:20] VITALS: PULSE 110
--- NOTE | 2020-11-26 16:45 | PCM.DCSUM1 ---
Discharge Summary - Hospital Course Free Text/Narrative:: [id number] with history of Parkinson's disease presents to the ED due to hypoxia and altered mental status. Patient has COVID-19 infection. Patient was recently seen in the hospital for dehydration and gastrointestinal symptoms secondary to COVID-19 on admission patient was not hypoxic.rns ER today secondary to deterioration in his respiratory status. Per documentation EMS noted patient's oxygen saturation in the mid 70s upon arrival, which increased to 85% on arrival to the ED on room air. Per documentation in the ER it was noted that the patient's wanted patient to be DNRDNI and did not want patient treated with remdesivir. Patient was admitted to hospital for comfort measures. The following day on 11-23-20 patient's and son decided rescinded comfort care measures and stated they would like the patient to remain DNR/DNI but would like treatment. Family still refused remdesivir,which is standard of care currently but states they would like oxygen support, IV fluids, dexamethasone, antibiotics if warranted. Patient's poor medical prognosis was discussed but family insisted on treatment. Next day on 11-24-20 family members came to visit patient and were explained patient's deteriorating status and poor prognosis overnight including increased oxygen for support. Patient cannot communicate, was not able to eat or drink, nor was he able to take his Parkinson medications. Upon reconsideration patient's and son have both decided to place patient back on hospice status with comfort care measures during admission. Hospice team contacted family members previously. Patient was discharged on 11-26-20 to home with home hospice. Home hospice team to work with primary care physician to set up necessary medications, oxygen support, bed. - Discharge Data Discharge Date: 11/27/20 Discharge Disposition: DC/Tfer to Hospice - Home 52 Condition: Fair - Referral to Home Health Primary Care Physician: Song Tinoco MD - Discharge Diagnosis/Problem(s) (1) COVID-19 virus infection SNOMED Code(s): 094990733 ICD Code: U07.1 - COVID-19 Status: Acute (2) Hypoxia SNOMED Code(s): 374983435 ICD Code: R09.02 - HYPOXEMIA Status: Acute (3) Pneumonia due to COVID-19 virus SNOMED Code(s): 665615102004352548 ICD Code: U07.1 - COVID-19; J12.82 - PNEUMONIA DUE TO CORONAVIRUS DISEASE 2019 Status: Acute - Patient Summary/Data Consults: Consultations 11/23/20 06:08 Consult to Hospice [CONS] Routine - Patient Instructions Other/Special Instructions: Discharged, home Hospice status - Discharge Plan Home Medications: Home Meds Tamsulosin [Flomax] 0.4 mg PO DAILY 09/13/13 [History] Carbidopa/Levodopa [Sinemet Cr 25-100 mg] 2.5 tab PO QID 05/22/14 [History] [place] Oil 1 dose PO ASDIRECTED PRN 01/01/18 [History] Cholecalciferol (Vitamin D3) [Vitamin D3] 1,000 units PO DAILY 01/01/18 [History] L.acidoph,Paracasei, B.lactis [Probiotic] 1 tab PO DAILY 01/01/18 [History] Mirtazapine 5 mg PO BEDTIME 01/01/18 [History] Multivitamin [Multivitamins] 1 tab PO DAILY 01/01/18 [History] Crook-3S/DHA/Epa/Fish Oil [Crook-3 Fish Oil 1,000 mg Sfgl] 1,000 mg PO DAILY 01/01/18 [History] [place] 160 mg PO DAILY 01/01/18 [History] Turmeric Root Extract [Turmeric] 500 mg PO DAILY 01/01/18 [History] Vitamin B Complex 4 tab PO BID 01/01/18 [History] Carbidopa/Levodopa/Entacapone [Carbidopa-Levodopa 100 mg-Enta] 25 - 100 mg PO TID 11/16/20 [History] Niacin 400 mg PO QID 11/16/20 [History] amantadine HCL [Amantadine] 100 mg PO BID 11/16/20 [History] Forms: ED Department Discharge Referrals: Song Tinoco MD [Primary Care Provider] - - Discharge Summary/Plan Comment DC Time >30 min.: Yes Total # of Minutes for Discharge Time: 45 - General Info Date of Service: 11/27/20 Subjective Update: Patient was not able to communicate. - Review of Systems General: Reports: Other (Patient unable to communicate) - Patient Data Vitals - Most Recent: Last Vital Signs Temp 99.2 F 11/26/20 03:00 Pulse 110 H 11/26/20 11:00 Resp 27 H 11/26/20 11:00 BP 124/76 11/26/20 03:00 Pulse Ox 86 L 11/26/20 11:00 Weight - Most Recent: 88 lb I&O - Last 24 hours: Intake & Output 11/26/20 11/26/20 11/26/20 06:59 14:59 22:59 Intake Total 0 Output Total 150 Balance -150 Med Orders - Current: Current Medications Discontinued Medications Albuterol/Ipratropium (Albuterol/Ipratropium 3.0-0.5 Mg/3 Ml Neb Soln) 3 ml NEB Q4HRRT [facility] Last Admin: 11/23/20 09:54 Dose: 3 ml Documented by: Albuterol/Ipratropium (Albuterol/Ipratropium 3.0-0.5 Mg/3 Ml Neb Soln) 3 ml NEB Q4HRRT PRN PRN Reason: Shortness of Breath Albuterol/Ipratropium (Albuterol/Ipratropium 3.0-0.5 Mg/3 Ml Neb Soln) 3 ml NEB Q4HRRT PRN PRN Reason: Shortness of Breath Atropine Sulfate (Atropine 1% Ophth Soln 5 Ml Bottle) 0 ml SL Q4H PRN PRN Reason: SECRETIONS Atropine Sulfate (Atropine 1% Ophth Soln 5 Ml Bottle) 0 ml SL Q4H [facility] Last Admin: 11/24/20 16:23 Dose: Not Given Documented by: Atropine Sulfate (Atropine 1% Ophth Soln 5 Ml Bottle) 0 ml SL Q4H PRN PRN Reason: Other Benzonatate (Benzonatate 100 Mg Cap) 100 mg PO Q6H PRN PRN Reason: Cough Carbidopa/Levodopa (Carbidopa/Levodopa 25-100 Mg Tab.Er) 2.5 tab PO QID [facility] Last Admin: 11/24/20 22:33 Dose: Not Given Documented by: Dexamethasone (Dexamethasone 10 Mg/Ml Sdv) 6 mg IVPUSH DAILY [facility] Last Admin: 11/23/20 08:50 Dose: 6 mg Documented by: Dexamethasone (Dexamethasone 4 Mg Tab) 6 mg PO ONETIME ONE Stop: 11/23/20 19:01 Dexamethasone (Dexamethasone 4 Mg/Ml Sdv) 6 mg IVPUSH Q24H [facility] Dexamethasone (Dexamethasone 4 Mg/Ml Sdv) 6 mg IVPUSH Q24H [facility] Last Admin: 11/24/20 08:35 Dose: 6 mg Documented by: Enoxaparin Sodium (Enoxaparin 40 Mg/0.4 Ml Syringe) 40 mg SUBCUT Q24H [facility] Last Admin: 11/23/20 19:47 Dose: Not Given Documented by: Enoxaparin Sodium (Enoxaparin 40 Mg/0.4 Ml Syringe) 40 mg SUBCUT Q24H [facility] Last Admin: 11/24/20 08:56 Dose: Not Given Documented by: Sodium Chloride (Normal Saline) 1,000 mls @ 999 mls/hr IV .Bolus ONE Stop: 11/23/20 01:36 Last Admin: 11/23/20 00:50 Dose: 999 mls/hr Documented by: Lactated Ringer's (Ringers, Lactated) 1,000 mls [facility] Admin: 11/23/20 06:54 Dose: 75 mls/hr Documented by: Acetaminophen 1,000 mg/ Premix 100 mls @ 400 mls/hr IV Q4H PRN PRN Reason: Pain Acetaminophen 500 mg/ Premix 50 mls @ 200 mls/hr IV Q4H PRN PRN Reason: Pain Lactated Ringer's (Ringers, Lactated) 1,000 mls @ 75 [facility] Last Admin: 11/23/20 20:01 Dose: 75 mls/hr Documented by: Lactated Ringer's (Ringers, Lactated) 1,000 mls @ 75 [facility] Last Admin: 11/24/20 13:03 Dose: 75 mls/hr Documented by: Iopamidol (Iopamidol 755 Mg/Ml 500 Ml Multipack Bottle) 50 ml IVPUSH ONETIME STA Stop: 11/23/20 01:16 Last Admin: 11/23/20 01:16 Dose: 50 ml Documented by: Lorazepam (Lorazepam 2 Mg/Ml Sdv) 1 mg IV Q4H PRN PRN Reason: AGITATION/ANXIETY Lorazepam (Lorazepam 2 Mg/Ml Sdv) 1 mg IVPUSH Q4H PRN PRN Reason: Agitation Morphine Sulfate (Morphine 2 Mg/Ml Syringe) 1 mg IVPUSH Q4H PRN PRN Reason: Pain Last Admin: 11/23/20 15:09 Dose: 1 mg Documented by: Morphine Sulfate (Morphine 2 Mg/Ml Syringe) 1 mg IV Q2H PRN PRN Reason: PAIN/AIR HUNGER Last Admin: 11/23/20 17:43 Dose: 1 mg Documented by: Morphine Sulfate (Morphine 2 Mg/Ml Syringe) 1 mg IVPUSH Q2H PRN PRN Reason: Pain Last Admin: 11/25/20 14:24 Dose: 1 mg Documented by: Non-Formulary Medication (Carbidopa/Levodopa/Entacapone [Carbidopa-Levodopa 100 Mg-Enta]) 25 - 100 mg PO TID [facility] Last Admin: 11/24/20 22:32 Dose: Not Given Documented by:
== END 2020-11-26 12:05 | disposition hospice, home (50) ==
LOC: MW.ED 23:41 → MW.MS 11-23 03:06
PROVIDERS: ADMIT Student in an Organized Health Care Education/Training Program; ATTEND Student in an Organized Health Care Education/Training Program
DX: U07.1 COVID-19 (principal); J96.91 Respiratory failure, unspecified with hypoxia; J12.82 Pneumonia due to coronavirus disease 2019; G20 Parkinson's disease; Z79.899 Other long term (current) drug therapy
CPT/HCPCS: 36415; 71275; 80048; 80053; 83605; 83735; 84100; 85025; 93005; 94640; 96374; 96375; 96376; 99285; A9270; G0378; J1100; J2270; J7030; J7120; Q9967; J7620-GY